=== PATIENT | female | born 1975 | race Hispanic/Latino ===

== ENCOUNTER → 2017-04-17 | Outpatient (CLI) | payer BC ==
[~2017-04-17] MED LIST: ADVAIR 250-501 EACH INH; LEVOTHYROXINE50 MCG PO; LISINOPRIL-HCT1 EAC2 PO; MELOXICAM7.5 MG PO; SINGULAIR10 MG PO; VENTOLIN HFA18 GM IN
--- NOTE | 2017-04-17 17:11 | Diagnostic Imaging Report ---
PROCEDURE:US LIVER COMPARISON:None. INDICATIONS:Elevated LFTs TECHNIQUE: Zuniga-scale and color doppler transverse and longitudinal images of the right upper quadrant of the abdomen were obtained. FINDINGS: Liver: 15.6 cm in right mid-clavicular line. Increased echogenicity. No masses. Main portal vein: 1.2 cm, hepatopetal flow Gallbladder: No stones, sludge, wall thickening, or pericholecystic fluid. Common Bile Duct: 0.3 cm Sonographic Nichole's sign: Negative Right kidney: 11.3 cm. Normal echogenicity. No solid masses or hydronephrosis. Pancreas: The visualized portions of the neck and proximal body are unremarkable. Inferior vena cava: Patent Aorta: Within normal limits Ascites: None in the right upper quadrant of the abdomen. CONCLUSION: 1. Mild hepatomegaly with diffuse fatty infiltration. No focal lesions. Buck Davidson M.D. Dictated by: Buck Davidson M.D. on 04/17/2017 at 17:20 Electronically approved by: Buck Davidson M.D. on 04/17/2017 at 17:20
--- NOTE | 2017-04-17 18:10 | Diagnostic Imaging Report ---
PROCEDURE:X-RAY LUMBAR SPINE, TWO VIEWS COMPARISON:None. INDICATIONS:LOWER BACK PAIN FINDINGS: There are 5 lumbar-type vertebral bodies. The vertebral bodies are well-aligned without evidence of spondylolisthesis. There are no acute, displaced fractures, lytic or blastic lesions. Minimal intervertebral disc space narrowing at L5-S1. The vertebral body heights are well-maintained. The sacroiliac joints are unremarkable. CONCLUSION: Normal lumbar no acute abnormalities. Minimal degenerative disc changes L5-S1. Buck Davidson M.D. Dictated by: Buck Davidson M.D. on 04/17/2017 at 18:19 Electronically approved by: Buck Davidson M.D. on 04/17/2017 at 18:19
== END ==
LOC: US 14:56
PROVIDERS: ATTEND Family Medicine
DX: R94.5 Abnormal results of liver function studies (principal); M54.5 Low back pain
CPT/HCPCS: 36415; 72100; 76705; 81025

== ENCOUNTER 2017-04-22 11:44 | Emergency (ER) | payer BC | END 2017-04-23 12:33 | disposition left against medical advice (07) | LOC: ER 11:44 | DX: Z04.3 Encounter for examination and observation following other accident (principal) ==

== ENCOUNTER → 2017-06-03 | Outpatient (RCR) | payer BC | LOC: PT 05-19 10:49 | PROVIDERS: ATTEND Family Medicine | DX: M50.20 Other cervical disc displacement, unspecified cervical region (principal); M54.5 Low back pain; M62.81 Muscle weakness (generalized) ==

== ENCOUNTER 2017-07-01 15:44 | Outpatient (RCR) | payer BC | END 2017-07-04 | LOC: PT 15:44 | PROVIDERS: ATTEND Family Medicine | DX: M54.5 Low back pain (principal); M50.20 Other cervical disc displacement, unspecified cervical region ==

== ENCOUNTER 2017-07-08 15:43 | Outpatient (RCR) | payer BC | END 2017-08-03 | LOC: PT 15:43 | PROVIDERS: ATTEND Family Medicine | DX: M54.5 Low back pain (principal); M50.20 Other cervical disc displacement, unspecified cervical region; M62.81 Muscle weakness (generalized); M53.86 Other specified dorsopathies, lumbar region ==

== ENCOUNTER → 2018-05-18 | Outpatient (CLI) | payer BC ==
--- NOTE | 2018-05-18 16:58 | Diagnostic Imaging Report ---
EXAMINATION: Thyroid ultrasound. CLINICAL HISTORY: Abnormal thyroid blood tests COMPARISON: None. . DISCUSSION: Transverse and longitudinal images of the thyroid were obtained utilizing grayscale and color Doppler modalities. The right thyroid lobe measures 4.6 x 2.3 x 2 cm and shows normal echogenicity. 2.5 x 1.8 x 1.9 cm solid (2.), Hypoechoic (2.), Wider than tall (0 point) Smoothly marginated (0 point), macrocalcifications (1.) TR 4 5 mm cyst in the upper pole. The left thyroid lobe measures 4.2 x 1.3 x 1.1 cm and shows normal echogenicity. 0.7 x 0.5 x 0.6 cm nodule in the lower pole, solid (2.), Hypoechoic (2.), Wider than tall (0 point), ill-defined margins (0 point), no calcifications (0 point) TR 4 Additional cysts measure 0.6 and 0.5 cm. The thyroid isthmus measures 0.5 cm and shows normal echogenicity. 2S stomach nodules: 1.3 x 0.7 x 0.8 cm solid (2.), Hypoechoic (2.), Wider than tall (0 point), smoothly marginated (0 point), no calcifications (0 point) TR 4 0.8 x 0.6 x 0.8 cm solid (2.), Hypoechoic (2.), Wider than tall (0 point), smoothly marginated (0 point), though calcifications (0 point), TR 4 There is no adenopathy. IMPRESSION: Thyroid nodules as above. Ultrasound-guided fine-needle aspiration of the 2.5 cm TI-RADS 4 nodule in the right lobe is suggested. Follow-up thyroid ultrasound in one year is suggested to assess for stability of the 1.3 cm TI-RADS 4 nodule in the isthmus. The staff physician below has personally reviewed this exam on the date of dictation. Signed by: Dr. Farzad Foster M.D. on 05/18/2018 4:53 PM
== END ==
LOC: US 16:01
PROVIDERS: ATTEND Family Medicine
DX: R94.6 Abnormal results of thyroid function studies (principal); R79.89 Other specified abnormal findings of blood chemistry
CPT/HCPCS: 76536

== ENCOUNTER → 2018-05-20 | Outpatient (CLI) | payer BC | LOC: MAMMO 15:48 | PROVIDERS: ATTEND Family Medicine | DX: Z12.31 Encounter for screening mammogram for malignant neoplasm of breast (principal) | CPT/HCPCS: 77067 ==

== ENCOUNTER → 2018-06-02 | Outpatient (CLI) | payer BC ==
--- NOTE | 2018-06-02 15:23 | Diagnostic Imaging Report ---
Ultrasound-guided right thyroid nodule fine needle aspiration Pre-Procedure Diagnosis: Right sided thyroid nodule Post-procedure Diagnosis: Right sided thyroid nodule Bit Sharpener: Jose Francisco Lane MD Sedation: 1% lidocaine local anesthesia. Estimate blood loss: None. Complications: None Implants/Grafts: None Specimen: 25-gauge fine needle aspiration x 5. Procedure/Findings: Informed consent was obtained and the patient positioned supine in the ultrasound suite. A timeout was performed, followed by preliminary ultrasound of the right neck demonstrating a right sided thyroid nodule, corresponding to the suspicious nodule noted on ultrasound from 05/18/18. A path to the lesion was identified. The neck was prepped and draped in standard sterile fashion. Local anesthesia with 1% subcutaneous lidocaine was administered. Using real-time ultrasound guidance, a 25 gauge needle was advanced into the nodule. A total of five 25-gauge fine needle aspirates were obtained with ultrasound guidance and were submitted to the Pathologist who was present on site for review who confirmed satisfactory specimen. Post procedural ultrasound demonstrated no immediate complication. At the end of the procedure a sterile dressing was applied. Impression: Ultrasound guided fine needle aspiration of right sided thyroid nodule as above. Signed by: Dr. Jose Francisco Lane MD on 06/02/2018 3:20 PM
== END ==
LOC: US 08:26
PROVIDERS: ATTEND Family Medicine
DX: E04.1 Nontoxic single thyroid nodule (principal)
CPT/HCPCS: 10005; 88172; 88173

== ENCOUNTER → 2018-07-30 | Outpatient (CLI) | payer BC ==
[2018-07-30 14:08] LABS: FREE T4 (FREE THYROXINE) 0.96 ng/dL (0.9-1.8); THYROID STIMULATING HORMONE 0.4 uIU/mL (0.350-4.940)
== END ==
LOC: LAB 13:04
PROVIDERS: ATTEND Family Medicine
DX: E04.1 Nontoxic single thyroid nodule (principal)
CPT/HCPCS: 36415; 84439; 84443

== ENCOUNTER 2018-09-06 11:36 | Emergency (ER) | payer BC ==
[~2018-09-06] VITALS: Ht 162.6 cm; Wt 70.1 kg
--- OUTSIDE RECORDS SUMMARY | 2018-09-06 11:41 | XMS REPORT | Continuity of Care Document ---
Author Author [facility] Address Unknown Phone Unavailable Problems Problem Status Onset Date Classification Date Reported Comments Source Acute upper respiratory infection 01/29/2017 Diagnosis 01/29/2017 [facility] Acute pharyngitis 01/29/2017 Diagnosis 01/29/2017 [facility] On examination - hoarseness 01/29/2017 Diagnosis 01/29/2017 [facility] Medications Medication Details Route Status Patient Instructions Ordering Provider Order Date Source Levothyroxine Sodium 50 Mcg Tablet, 50 Mcg Oral Daily Active 04/12/2015 [facility] Montelukast Sodium (Singulair) 10 Mg Tablet, 10 Mg Oral Daily Active 04/10/2015 [facility] Fluticasone propionate 0.25 MG/ACTUAT / salmeterol 0.05 MG/ACTUAT Dry Powder Inhaler Advair Diskus 250 mcg-50 mcg/dose powder for inhalation Active [facility] Amoxicillin 875 MG Oral Tablet amoxicillin 875 mg tablet Take 1 tablet every 12 hours by oral route as directed for 10 days. Active [facility] Blisovi Fe 1/20 (28) 1 mg-20 mcg (21)/75 mg (7) tablet Blisovi Fe 1/20 (28) 1 mg-20 mcg (21)/75 mg (7) tablet TAKE ONE (1) TABLET(S) BY MOUTH ONCE A DAY. Active [facility] Brompheniramine Maleate 0.4 MG/ML / Dextromethorphan Hydrobromide 2 MG/ML / Pseudoephedrine Hydrochloride 6 MG/ML Oral Solution [Bromfed DM] Bromfed DM 2 mg-30 mg-10 mg/5 mL syrup Take 10 mL every 4-6 hours by oral route as needed for 6 days. Active [facility] Hydrochlorothiazide 12.5 MG / Lisinopril 10 MG Oral Tablet lisinopril 10 mg-hydrochlorothiazide 12.5 mg tablet TAKE ONE (1) TABLET(S) BY MOUTH DAILY. Active [facility] montelukast 10 MG Oral Tablet montelukast 10 mg tablet Active [facility] 200 ACTUAT Albuterol 0.09 MG/ACTUAT Metered Dose Inhaler [Ventolin] Ventolin HFA 90 mcg/actuation aerosol inhaler Active [facility] Albuterol Sulfate (Ventolin Hfa) 18 Gm Hfa.aer.ad As Needed Active [facility] Fluticasone/Salmeterol (Advair 250-50 Diskus) 1 Each Disk.w.dev As Needed Active [facility] Lisinopril/Hydrochlorothiazide (Lisinopril-Hctz 10-12.5 Mg Tab) 1 Each Tablet Daily Active [facility] Meloxicam 7.5 Mg Tablet Daily Active [facility] Allergies, Adverse Reactions, Alerts Substance Category Reaction Severity Reaction type Status Date Reported Comments Source Phenytoin RASH Mild Allergy to Substance Active 04/12/2015 [facility] Dilantin Rash Allergy to substance 01/29/2017 [facility] Immunizations Immunization Date Given Site Status Last Updated Comments Source influenza, unspecified formulation 01/22/2017 completed [facility] Results Order Name Results Value Reference Range Date Interpretation Comments Source Urine human chorionic gonadotropin (hCG) detection Urine human chorionic gonadotropin (hCG) detection NEGATIVE NEGATIVE 04/17/2017 [facility] RESULT negative 01/29/2017 [facility] SWAB LOCATION Left and Right tonsillar pillars 01/29/2017 [facility] Influenza A negative 01/29/2017 [facility] Influenza B negative 01/29/2017 [facility] Vital Signs Vital Sign Value Date Comments Source Diastolic (mm Hg) 74 01/29/2017 [facility] Height 64 01/29/2017 [facility] Systolic (mm Hg) 110 01/29/2017 [facility] Weight 164 01/29/2017 [facility] Encounters Location Location Details Encounter Type Encounter Number Reason For Visit Attending Provider ADM Date DC Date Status Source [place] - [facility] - [id number] Dorado, ALEX-C: [address] [place] [address], Ph. [id number] Luzma Dorado 01/29/2017 [facility] Registered Clinic [id number] SHARMAINE AYALA MD 04/17/2017 [facility] Departed Emergency Room [id number] MAREN PRAKASH MD 04/22/2017 04/23/2017 [facility] Discharged Recurring [id number] SHARMAINE AYALA MD 05/19/2017 06/03/2017 [facility] Discharged Recurring [id number] SHARMAINE AYALA MD 06/09/2017 07/04/2017 [facility] Discharged Recurring [id number] SHARMAINE AYALA MD 07/08/2017 08/03/2017 [facility] Procedures Procedure Code Date Perfomer Comments Source US liver [id number] 04/17/[address] [facility]
--- OUTSIDE RECORDS SUMMARY | 2018-09-06 11:41 | XMS REPORT | Encounter Summary ---
Author Organization Unknown Address [address] [place] [address] Phone [phone] Reason for Visit Medical Complaint Instructions 1. Acute upper respiratory infection upper respiratory infection (cold): care instructions rapid flu (A+B) Bromfed DM 2 mg-30 mg-10 mg/5 mL syrup 2. Acute pharyngitis sore throat: care instructions amoxicillin 875 mg tablet culture, respiratory rapid strep group A, throat 3. On examination - hoarseness Discussion Note Pt is in NAD; Verbalizes understanding of all instructions with no questions at this time. Plan of Care Patient Instructions Take fluticasone (flonase) as needed for nasal and ear congestion and post nasal drainage. [place] one spray in each nostril twice a day. Take a warm, steamy shower, blow your nose thereafter, and spray in each nostril. Tilt your head up for about 10 seconds and breath through your mouth. Do not sniff or snort the medication in or else the medication will go to your throat and not be absorbed appropriately. Take Bromfed DM as directed for cough. Alternate with Ibuprofen and acetaminophen every 4hrs as needed for pain/fever/headache. Take antibiotic as directed. Proper hydration and rest. Return to work/school if free of fever for 24-hrs. Do not share any utensils/cups, no kissing, recommend hand washing after coughing/sneezing/blowing nose and cover face when you do so. Take medications as prescribed. Return to clinic or follow up with your PCP within 2- 3 days if symptoms worsen as discussed. We will call you with your lab results. Reminders Provider Appointments None recorded. Lab Rapid Flu (A+B) 01/29/2017 [facility] Culture, Respiratory 01/29/2017 [facility] Rapid Strep Group a, Throat 01/29/2017 [facility] Referral None recorded. Procedures None recorded. Surgeries None recorded. Imaging None recorded. Medications Name Start Date Advair Diskus 250 mcg-50 mcg/dose powder for inhalation amoxicillin 875 mg tablet Take 1 tablet every 12 hours by oral route as directed for 10 days. Blisovi Fe 04/25 (28) 1 mg-20 mcg (21)/75 mg (7) tablet TAKE ONE (1) TABLET(S) BY MOUTH ONCE A DAY. Bromfed DM 2 mg-30 mg-10 mg/5 mL syrup Take 10 mL every 4-6 hours by oral route as needed for 6 days. lisinopril 10 mg-hydrochlorothiazide 12.5 mg tablet TAKE ONE (1) TABLET(S) BY MOUTH DAILY. montelukast 10 mg tablet Ventolin HFA 90 mcg/actuation aerosol inhaler Medications Administered None recorded. Vitals Height Weight BMI Blood Pressure 5 ft 4 in 164 lbs 28.2 kg/m2 110/74 mm[Hg] Lab Results Date Name Specimen Result Interpretation Description Value Range Status Address Rapid Strep Group a, Throat Result negative [facility]: [address] [place] [address] Swab Location Left and Right tonsillar pillars [facility]: [address] [place] [address] Rapid Flu (A+B) Influenza a negative [facility]: [address] [place] [address] Influenza B negative [facility]: [address] [place] [address] Allergies Code Code System Name Reaction Severity Status Onset RxNorm Dilantin Rash Active NKDA Problems None recorded. Procedures None recorded. Vaccine List Vaccine Type influenza, unspecified formulation 01/22/2017 Social History Smoking Status Never Smoker Past Encounters 01/29/2017 Acute Upper Respiratory Infection; Acute Pharyngitis; On Examination - Hoarseness Luzma Dorado, OPERATIONAL RISK ANALYST-C: [address] [place] [address], Ph. History of Present Illness Throat-Oral Complaint Reported By: Patient HPI: Location: throat. Quality: sore throat. Severity: moderate, pain level 6/10. Duration: 2 days. Onset/Timing: sudden. Context: no sick contacts, no foreign travel, non-smoker, allergies, asthma; Pt is adamant about ABX because she is scheduled for surgery next week although she was educated on viral vs bacterial vs allergic etiology. Modifying factors: OTC medication. Associated Symptoms: no fever, no headache, no body aches, no sputum production, no shortness of breath, no wheezing, no change in number of pillows needed to sleep at night, no sweats, no significant weight gain, no significant weight loss, no morning cough, no vomiting, no diarrhea, no rash, no nausea, sore throat; nasal congestion,B/L ear pressure and fullness, post nasal drip, hoarseness, and chills Busdopw-Xwufa-Cuf Reported By: Patient HPI: Quality: symptoms worse during the day. Duration: 2 days. Context: no ill contacts, no tick/insect bites, no recent travel, no new medications. Associated Symptoms: no fever/chills, no headache, no muscle aches, no rash, no lethargy, nasal passage blockage (stuffiness); B/L ear pressure and fullness, post nasal drip, sore throat, hoarseness, and chills. Modifying Factors nothing gives relief Review of Systems:ROS as noted in the HPI Review of Systems Basic Reported By: Patient Physical Exam Adult Basic, Adult Female Complete Reported By: Patient Constitutional: General Appearance: healthy-appearing, well-nourished, well-developed. Level of Distress: NAD. Ambulation: ambulating normally Psychiatric: Mental Status: active and alert. Orientation: to time, to place, to person Mjf-Clmn-Xtzed-Throat: Ears: no lesions on external ear, no outer ear tenderness, EACs clear, TMs clear. Hearing: no hearing loss. Nose: no lesions on external nose, nares patent, no septal deviation, nasal passages clear, no sinus tenderness, nasal discharge--rhinorrhea, post nasal drip; B/L NTs edematous and pale. Lips, Teeth, and Gums: no mouth or lip ulcers, no bleeding gums, normal dentition. Oropharynx: moist mucous membranes, no exudates, tonsils not enlarged, erythema Neck: Lymph Nodes: no cervical LAD Lungs: Respiratory effort: no dyspnea, no tachypnea, no use of accessory muscles, no intercostal retractions. Auscultation: breath sounds normal Cardiovascular: Heart Auscultation: RRR, no murmurs Neurologic: Gait and Station: normal gait, normal station
--- OUTSIDE RECORDS SUMMARY | 2018-09-06 11:41 | XMS REPORT ---
Author Author [facility] Address Unknown Phone Unavailable Care Team Providers Care Size Maker Name Role Phone Charles AYALA (EMMANUEL) SHARMAINE Unavailable Unavailable Problems This patient has no known problems. Allergies, Adverse Reactions, Alerts This patient has no known allergies or adverse reactions. Medications This patient has no known medications. Results Test Description Test Time Test Comments Text Results Atomic Results Result Comments FNA US GUIDED 1ST LESION 2018-06-02 15:14:00 [place] [address] Patient Name: KIRK JARAMILLO MR #: [id number] : 1975 Age/Sex: 43/F Req #: [id number] Adm Physician: Ordered by: SHARMAINE AYAAL MD Report #: [id number] Location: US Room/Bed: Procedure: [id number] IR/FNA US GUIDED 1ST LESION Exam Date: Exam Time: REPORT STATUS: Signed Ultrasound-guided right thyroid nodule fine needle aspiration Pre-Procedure Diagnosis: Right sided thyroid nodule Post-procedure Diagnosis: Right sided thyroid nodule Direct Mail Manager: Meenakshi Argueta MD Sedation: 1% lidocaine local anesthesia. Estimate blood loss: None. Complications: None Implants/Grafts: None Specimen: 25-gauge fine needle aspiration x 5. Procedure/Findings: Informed consent was obtained and the patient positioned supine in the ultrasound suite. A timeout was performed, followed by preliminary ultrasound of the right neck demonstrating a right sided thyroid nodule, corresponding to the suspicious nodule noted on ultrasound from 05/18/18. A path to the lesion was identified. The neck was prepped and draped in standard sterile fashion. Local anesthesia with 1% subcutaneous lidocaine was administered. Using real-time ultrasound guidance, a 25 gauge needle was advanced into the nodule. A total of five 25-gauge fine needle aspirates were obtained with ultrasound guidance and were submitted to the Pa thologist who was present on site for review who confirmed satisfactory specimen. Post procedural ultrasound demonstrated no immediate complication. At the end of the procedure a sterile dressing was applied. Impression: Ultrasound guided fine needle aspiration of right sided thyroid nodule as above. Signed by: Dr. Meenakshi Argueta MD on 06/02/2018 3:20 PM Dictated By: MEENAKSHI ARGUETA MD 1520 Transcribed By: SHERLY on 06/02/18 1520 COPY TO: SHARMAINE AYALA MD (NS) MAMMOGRAPHY DIGITAL SCR BILAT 2018-05-20 16:25:00 [place] [address] Patient Name: KIRK JARAMILLO MR #: [id number] : 1975 Age/Sex: 43/F Req #: [id number] Adm Physician: Ordered by: SHARMAINE AYALA MD Report #: [id number] [facility]: Procedure: [id number] MG/MAMMOGRAPHY DIGITAL SCR BILAT Exam Date: 05/20/18 Exam Time: 1550 REPORT STATUS: Signed #[id number] - [id number] #BILATERAL DIGITAL SCREENING MAMMOGRAM WITH CAD: 05/20/2018 CLINICAL: Routine screening. Comparison is made to exam dated: 08/02/2015 mammogram - [facility]. Current study contains 6 films. The tissue of both breasts is heterogeneously dense. This may lower the sensitivity of mammography. Current study was also evaluated with a Computer Aided Detection (CAD) system. There are benign calcifications in both breasts. There also is a biopsy clip in the right breast. The previously described focal asymmetry in the deep right breast best seen on the MLO view is stable. No significant masses, calcifications, or other findings are seen in either breast. There has been no significant interval change. IMPRESSION: BENIGN There is no mammographic evidence of malignancy. A 1 year screening mammogram is recommended. The patient will be notified by letter of the results. Philomena Dominguez Jr., D.O. cw/:06/04/2018 11:25:13 [place]ider: Sharmaine GUILLEN)(M), [facility] letter sent: Compared to Prior B9 Mammogram BI-RADS: 2 Benign Dictated By: PHILOMENA DOMINGUEZ DO 1125 Transcribed By: SETH on 06/04/18 1125 COPY TO: SHARMAINE AYALA MD (NS) THYROID 2018-05-18 16:47:00 [place] [address] Patient Name: KIRK JARAMILLO MR #: [id number] : 1975 Age/Sex: 43/F Req #: [id number] Adm Physician: Ordered by: SHARMAINE AYALA MD Report #: [id number] Location: US Room/Bed: Procedure: [id number] US/US THYROID Exam Date: 05/18/18 Exam Time: 1618 REPORT STATUS: Signed EXAMINATION: Thyroid ultrasound. CLINICAL HISTORY: Abnormal thyroid blood tests COMPARISON: None. . DISCUSSION: Transverse and longitudinal images of the thyroid were obtained utilizing grayscale and color Doppler modalities. The right thyroid lobe measures 4.6 x 2.3 x 2 cm and shows normal echogenicity. 2.5 x 1.8 x 1.9 cm solid (2.), Hypoechoic (2.), Wider than tall (0 point) Smoothly marginated (0 point), macrocalcifications (1.) TR 4 5 mm cyst in the upper pole. The left thyroid lobe measures 4.2 x 1.3 x 1.1 cm and shows normal echogenicity. 0.7 x 0.5 x 0.6 cm nodule in the lower pole, solid (2.), Hypoechoic (2.), Wider than tall (0 point), ill-defined margins (0 point), no calcifications (0 point) TR 4 Additional cysts measure 0.6 and 0.5 cm. The thyroid isthmus measures 0.5 cm and shows normal echogenicity. 2S stomach nodules: 1.3 x 0.7 x 0.8 cm solid (2.), Hypoechoic (2.), Wider than tall (0 point), smoothly marginated (0 point), no calcifications (0 point) TR 4 0.8 x 0.6 x 0.8 cm solid (2.), Hypoechoic (2.), Wider than tall (0 point), smoothly marginated (0 point), though calcifications (0 point), TR 4 There is no adenopathy. IMPRESSION: Thyroid nodules as above. Ultrasound-guided fine-needle aspiration of the 2.5 cm TI-RADS 4 nodule in the right lobe is suggested. Follow-up thyroid ultrasound in one year is suggested to assess for stability of the 1.3 cm TI-RADS 4 nodule in the isthmus. The staff physician below has personally reviewed this exam on the date of dictation. Signed by: Dr. Kathia Ponce M.D. on 05/18/2018 4:53 PM Dictated By: KATHIA PONCE MD 1653 Transcribed By: SHERLY on 05/18/18 1653 COPY TO: SHARMAINE AYALA MD (NS) SP LUMBAR AP LATERAL 2-3VWS [place] [address] [place] [address] Patient Name: KIRK JARAMILLO MR #: [id number] : 1975 Age/Sex: 42/F Req #: [id number] Adm Physician: Ordered by: SHARMAINE AYALA MD Report #: [id number] Location: Room/Bed: Procedure: [id number] DX/SP LUMBAR AP LATERAL 2-3VWS Exam Date: 04/17/17 Exam Time: 1610 REPORT STATUS: Signed PROCEDURE: X-RAY LUMBAR SPINE, TWO VIEWS COMPARISON: None. INDICATIONS: LOWER BACK PAIN FINDINGS: There are 5 lumbar-type vertebral bodies. The vertebral bodies are well-aligned without evidence of spondylolisthesis. There are no acute, displaced fractures, lytic or blastic lesions. Minimal intervertebral disc space narrowing at L5-S1. The vertebral body heights are well-maintained. The sacroiliac joints are unremarkable. CONCLUSION: Normal lumbar no acute abnormalities. Minimal degenerative disc changes L5-S1. Neftali Davidson M.D. Dictated by: Neftali Davidson M.D. on 04/17/2017 at 18:19 Electronically approved by: Neftali Davidson M.D. on 04/17/2017 at 18:19 Dictated By: NEFTALI DAVIDSON MD 18 Transcribed By: SHELL on 04/17/171818 COPY TO: SHARMAINE AYALA MD (NS) [facility] [address] [place] [address] Patient Name: KIRK JARAMILLO MR #: [id number] : 1975 Age/Sex: 42/F Req #: [id number] Adm Physician: Ordered by: SHARMAINE AYALA MD Report #: [id number] Location: US Room/Bed: Procedure: [id number] US/US LIVER Exam Date: 04/17/17 Exam Time: 1509 REPORT STATUS: Signed PROCEDURE: US LIVER COMPARISON: None. INDICATIONS: Elevated LFTs TECHNIQUE: Zuniga-scale and color doppler transverse and longitudinal images of the right upper quadrant of the abdomen were obtained. FINDINGS: Liver: 15.6 cm in right mid-clavicular line. Increased echogenicity. No masses. Main portal vein: 1.2 cm, hepatopetal flow Gallbladder: No stones, sludge, wall thickening, or pericholecystic fluid. Common Bile Duct: 0.3 cm Sonographic Nichole's sign: Negative Right kidney: 11.3 cm. Normal echogenicity. No solid masses or hydronephrosis. Pancreas: The visualized portions of the neck and proximal body are unremarkable. Inferior vena cava: Patent Aorta: Within normal limits Ascites: None in the right upper quadrant of the abdomen. CONCLUSION: 1. Mild hepatomegaly with diffuse fatty infiltration. No focal lesions. Neftali Davidson M.D. Dictated by: Neftali Davidson M.D. on 04/17/2017 at 17:20 Electronically approved by: Neftali Davidson M.D. on 04/17/2017 at 17:20 Dictated By: NEFTALI DAVIDSON MD 1720 Transcribed By: SHELL melo 04/17/171719 COPY TO: SHARMAINE AYALA MD (NS)
[2018-09-06] MEDS ORDERED: AMOXICILLIN500 MG PO (12:19)
[2018-09-06 12:31] VITALS: BP 155/83
== END 2018-09-06 12:31 | disposition home or self-care (01) ==
LOC: FSED 11:36
DX: R05 Cough (principal); J02.0 Streptococcal pharyngitis; B34.9 Viral infection, unspecified; J45.30 Mild persistent asthma, uncomplicated; I10 Essential (primary) hypertension
CPT/HCPCS: 83518; 87400; 99283

== ENCOUNTER → 2018-09-08 | Outpatient (CLI) | payer BC ==
[~2018-09-08] MED LIST changes: +AMOXICILLIN500 MG PO
[2018-09-08 13:47] LABS: FREE THYROXINE INDEX 2.2302 (1.4-3.8); THYROID STIMULATING HORMONE 0.502 uIU/mL (0.350-4.940)
== END ==
LOC: LAB 12:45
PROVIDERS: ATTEND Internal Medicine Endocrinology, Diabetes & Metabolism
DX: R94.6 Abnormal results of thyroid function studies (principal); E04.9 Nontoxic goiter, unspecified; E11.65 Type 2 diabetes mellitus with hyperglycemia
CPT/HCPCS: 36415; 84436; 84443; 84445; 84479; 86376; 86800

== ENCOUNTER → 2018-11-03 | Outpatient (CLI) | payer BC ==
--- NOTE | 2018-11-03 17:01 | Diagnostic Imaging Report ---
EXAMINATION: CHEST 2 VIEWS INDICATION: Asthma COMPARISON: None FINDINGS: LINES/TUBES:None LUNGS:The lungs are well-inflated. No focal consolidation or pulmonary edema. PLEURA:No pleural effusion or pneumothorax. MEDIASTINUM:The cardiomediastinal silhouette appears normal in size and shape. BONES/SOFT TISSUES:No acute osseous injury. ABDOMEN:No free air under the diaphragm. IMPRESSION: No focal pneumonia or pulmonary edema. Signed by: Michelle Wiggins MD on 11/03/2018 4:58 PM
== END ==
LOC: RAD 16:16
PROVIDERS: ATTEND Nurse Practitioner Family
DX: J45.901 Unspecified asthma with (acute) exacerbation (principal)
CPT/HCPCS: 71046

== ENCOUNTER 2018-11-18 18:12 | Emergency (ER) | payer BC ==
[~2018-11-18] VITALS: Ht 162.6 cm; Wt 69.9 kg
--- OUTSIDE RECORDS SUMMARY | 2018-11-18 18:17 | XMS REPORT | Continuity of Care Document ---
Author Author [employer] Address Unknown Phone Unavailable Care Team Providers Care Idea Man Name Role Phone [employer] website Information [facility] Unavailable Unavailable Problems Problem Status Onset Date Classification Date Reported Comments Source Acute upper respiratory infection 01/29/2017 Diagnosis 01/29/2017 [facility] Acute pharyngitis 01/29/2017 Diagnosis 01/29/2017 [facility] On examination - hoarseness 01/29/2017 Diagnosis 01/29/2017 [facility] Medications Medication Details Route Status Patient Instructions Ordering Provider Order Date Source Amoxicillin 500 Mg Capsule Twice A Day for For Infection Active [facility] 09/06/2018 [facility] Levothyroxine Sodium 50 Mcg Tablet, 50 Mcg Oral Daily Active 04/12/2015 [facility] Levothyroxine Sodium 50 Mcg Tablet, 50 Mcg Oral Daily Active 04/12/2015 [facility] Montelukast Sodium (Singulair) 10 Mg Tablet, 10 Mg Oral Daily Active 04/10/2015 [facility] Montelukast Sodium (Singulair) 10 Mg Tablet, 10 Mg Oral Daily Active 04/10/2015 [facility] Fluticasone propionate 0.25 MG/ACTUAT / salmeterol 0.05 MG/ACTUAT Dry Powder Inhaler Advair Diskus 250 mcg-50 mcg/dose powder for inhalation Active [facility] Amoxicillin 875 MG Oral Tablet amoxicillin 875 mg tablet Take 1 tablet every 12 hours by oral route as directed for 10 days. Active [facility] Blisovi Fe /20 (28) 1 mg-20 mcg (21)/75 mg (7) tablet Blisovi Fe /20 (28) 1 mg-20 mcg (21)/75 mg (7) [...] Hfa) 18 Gm Hfa.aer.ad As Needed Active [facility] Fluticasone/Salmeterol (Advair 250-50 Diskus) 1 Each Disk.w.dev As Needed Active [facility] Lisinopril/Hydrochlorothiazide (Lisinopril-Hctz 10-12.5 Mg Tab) 1 Each Tablet Daily Active [facility] Meloxicam 7.5 Mg Tablet Daily Active [facility] Albuterol Sulfate (Ventolin Hfa) 18 Gm Hfa.aer.ad As Needed Active [facility] Lisinopril/Hydrochlorothiazide (Lisinopril-Hctz 10-12.5 Mg Tab) 1 Each Tablet Daily Active [facility] Meloxicam 7.5 Mg Tablet Daily Active [facility] Allergies, Adverse Reactions, Alerts Substance Category Reaction Severity Reaction type Status Date Reported Comments Source Phenytoin RASH Mild Allergy to Substance Active 04/12/2015 [facility] Dilantin Rash Allergy to substance 01/29/2017 [facility] Immunizations Immunization Date Given Site Status Last Updated Comments Source influenza, unspecified formulation 01/22/2017 completed [facility] Results Order Name Results Value Reference Range Date Interpretation Comments Source Serum or plasma thyroxine (T4) free measurement (mass/volume) 0.96 0.9 - 1.8 07/30/2018 [facility] Serum or plasma thyrotropin measurement by detection limit <=0.005 miu/l (units/volume) 0.400 0.350 - 4.940 07/30/2018 [facility] Urine human chorionic gonadotropin (hCG) detection Urine human chorionic gonadotropin (hCG) detection NEGATIVE NEGATIVE 04/17/2017 [facility] RESULT negative 01/29/2017 [facility] SWAB LOCATION Left and Right tonsillar pillars 01/29/2017 [facility] Influenza A negative 01/29/2017 [facility] Influenza B negative 01/29/2017 [facility] Pathology Reports No Data Provided for This Section Diagnostic Reports No Data Provided for This Section Consultation Notes No Data Provided for This Section Discharge Summaries No Data Provided for This Section History and Physicals No Data Provided for This Section Vital Signs Vital Sign Value Date Comments Source Diastolic (mm Hg) 74 01/29/2017 [facility] Height 64 01/29/2017 [facility] Systolic (mm Hg) 110 01/29/2017 [facility] Weight 164 01/29/2017 [facility] Encounters Location Location Details Encounter Type Encounter Number Reason For Visit Attending Provider ADM Date DC Date Status Source [place] [facility] - [id number], [facility] [address] [place] [address], Ph. [id number] Luzma Dorado 01/29/2017 [facility] Registered Clinic [id number] SHARMAINE AYALA MD 04/17/2017 [facility] Departed Emergency Room [id number] MAREN PRAKASH MD 04/22/2017 04/23/2017 [facility] Discharged Recurring [id number] SHARMAINE AYALA MD 05/19/2017 06/03/2017 [facility] Discharged Recurring [id number] SHARMAINE AYALA MD 06/09/2017 07/04/2017 [facility] Discharged Recurring [id number] SHARMAINE AYALA MD 07/08/2017 08/03/2017 [facility] Registered Clinic [id number] SHARMAINE AYALA MD 05/18/2018 [facility] Registered Clinic [id number] SHARMAINE AYALA MD 05/20/2018 [facility] Registered Clinic [id number] SHARMAINE AYALA MD 06/02/2018 [facility] Registered Clinic [id number] SHARMAINE AYALA MD 07/30/2018 [facility] Departed Emergency Room [id number] MARGY SCHOFIELD MD 09/06/2018 09/06/2018 [facility] Procedures Procedure Code Date Perfomer Comments Source US thyroid [id number] 05/18/2018 [facility] liver [id number] 04/17/2017 [facility] Assessment and Plan No Data Provided for This Section Plan of Care Plan of Care Date Source Discharge Date 09/06/18 12:31pm Disposition HOME, SELF-CARE Condition at Discharge Stable Instructions/Education Provided Viral Syndrome - Adult Forms Provided Work/School Excuse Prescriptions See Medication Section Additional Instructions/Education In addition to prescription medications, recommend that you take the following: - Mucinex DM 600mg - 2 tabs twice daily, to help decrease mucous production - Ibuprofen 200 mg - 3 tabs together every 6 hours, with food, as needed for fever or body aches. - Zyrtec (Cetirizine) 10 mg - 1 tab daily, to help decrease post-nasal drainage. Drink LOTS of water, to help with hydration and to thin mucous. 09/06/2018 [facility] Prescriptions See Medication Section 08/04/2017 [facility] Social History Social History Date Source Social History Problem Response Recorded Date/Time Onset Date Status Hx Psychiatric Problems No 04/12/2015 2:07pm Not Applicable Not Applicable Hx Eating Disorder No 04/12/2015 2:07pm Not Applicable Not Applicable Hx Substance Use Disorder No 04/12/2015 2:07pm Not Applicable Not Applicable Hx Depression No 04/12/2015 2:07pm Not Applicable Not Applicable Hx Alcohol Use No 04/12/2015 2:07pm Not Applicable Not Applicable Hx Substance Use Treatment No 04/12/2015 2:07pm Not Applicable Not Applicable Hx Physical Abuse No 04/12/2015 2:07pm Not Applicable Not Applicable Smoking Status Start Date Stop Date Never Smoker 09/06/2018 [facility] Smoking Status Never Smoker 01/29/2017 [facility] Family History No Data Provided for This Section Advance Directives Order Name Results Value Date Source Advance Directives Advance Directives Directive Response Recorded Date/Time Does the patient have an advance directive? No 04/12/15 2:07pm If yes, is advance directive on file with [facility]? No 04/12/15 2:07pm If not on file with [facility] will patient provide a copy? No 04/12/15 2:07pm Do you have a Directive to Physician? No 09/06/18 12:16pm Do you have a Medical Power of Lisw? No 09/06/18 12:16pm Do you have an out of hospital Do Not Resuscitate Order? No 09/06/18 12:16pm Do you have any special needs we should be aware of? No 09/06/18 12:16pm Do you have a support person here with you today? Yes 09/06/18 12:16pm Did patient receive Notice of Privacy Practices? Yes 09/06/18 12:16pm Did patient receive patient rights and responsibilities? Yes 09/06/18 12:16pm 09/06/2018 [facility] Advance Directives Advance Directives Directive Response Recorded Date/Time Does the patient have an advance directive? No 04/12/15 2:07pm If yes, is advance directive on file with [facility]? No 04/12/15 2:07pm If not on file with [facility] will patient provide a copy? No 04/12/15 2:07pm Do you have a Directive to Physician? No 07/08/17 3:42pm Do you have a Medical Power of Lisw? No 07/08/17 3:42pm Do you have an out of hospital Do Not Resuscitate Order? No 07/08/17 3:42pm Do you have any special needs we should be aware of? No 07/08/17 3:42pm Do you have a support person here with you today? No 07/08/17 3:42pm Did patient receive Notice of Privacy Practices? No 07/08/17 3:42pm Did patient receive patient rights and responsibilities? No 07/08/17 3:42pm 08/04/2017 [facility] Functional Status No Data Provided for This Section
--- NOTE | 2018-11-18 18:58 | NUR ---
assumed care of pt
[2018-11-18 19:01] VITALS: BP 103/69
--- NOTE | 2018-11-18 19:05 | Diagnostic Imaging Report ---
KNEE 2 VIEW LT - HOPD - 2 views HISTORY: Pain COMPARISON: None available. FINDINGS: Bones: No acute displaced fracture. Osseous alignment is within normal limits. Joints: The joint spaces are well-maintained. Soft tissues: The soft tissues appear unremarkable. IMPRESSION: No acute radiographic abnormality. Signed by: Dr. Chepe Garcia MD on 11/18/2018 7:02 PM
== END 2018-11-18 19:10 | disposition home or self-care (01) ==
LOC: FSED 18:12
DX: S80.02XA Contusion of left knee, initial encounter (principal); S80.11XA Contusion of right lower leg, initial encounter; M25.511 Pain in right shoulder; W01.0XXA Fall on same level from slipping, tripping and stumbling without subsequent striking against object, initial encounter; Y92.512 Supermarket, store or market as the place of occurrence of the external cause; I10 Essential (primary) hypertension; E11.9 Type 2 diabetes mellitus without complications; J45.909 Unspecified asthma, uncomplicated; G40.909 Epilepsy, unspecified, not intractable, without status epilepticus
CPT/HCPCS: 99283

== ENCOUNTER → 2018-12-31 | Outpatient (CLI) | payer BC ==
--- NOTE | 2018-12-31 15:18 | Diagnostic Imaging Report ---
Thyroid ultrasound. History: Thyroid nodules. Comparison: 05/18/2018. Discussion: Transverse and longitudinal images of the thyroid were obtained demonstrating heterogeneous echogenicity of the thyroid. The right thyroid lobe measures 4.2 x 1.9 x 1.7 cm. A heterogeneous partially calcified nodule is present in the interpolar region measuring 2.9 x 1.8 x 1.8 cm, previously measuring 2.5 x 1.8 x 1.9 cm. This nodule was previously biopsied. The left lobe measures 3.9 x 1.1 x 1.2 cm. 4 subcentimeter hypoechoic nodules/cysts are present , ranging in size from 0.4 - 0.7 cm in maximal diameter, without significant change. The isthmus measures 5 mm in thickness. 2 oval circumscribed hypoechoic nodules are present, measuring 0.8 x 0.6 x 0.7 cm and 1.0 x 0.6 x 0.7 cm on the left, previously measuring 0.8 and 1.3 cm. IMPRESSION: Multiple thyroid nodules. Slight increase in size of right thyroid nodule which was previously biopsied. Decrease in size of left isthmus nodule, previously described as 1.3 cm TI-RADS 4 nodule, now measuring 1 cm. Continued follow-up in one year may be obtained. Signed by: London Mendoza on 12/31/2018 3:14 PM
--- NOTE | 2019-01-03 09:10 | Diagnostic Imaging Report ---
#[id number] - USBRELIMLT ULTRASOUND OF THE LEFT BREAST : 12/31/2018 Comparison is made to exams dated: 05/20/2018 mammogram and 05/22/2016 mammogram - [facility]. Real-time ultrasound was performed on the left breast. There are no solid or cystic masses identified. IMPRESSION: BENIGN There is no sonographic evidence of malignancy. A 1 year screening mammogram is recommended. PHUONG HEARD M.D. ct/penrad:12/31/2018 16:25:35 [employer] Wheelchair Mechanic: KARTHIK CARDOSO RDMS, [facility] letter sent: Normal Exam Ultrasound BI-RADS: 2 Benign
== END ==
LOC: US 12:24
PROVIDERS: ATTEND Obstetrics & Gynecology Gynecology
DX: N61.0 Mastitis without abscess (principal); N60.12 Diffuse cystic mastopathy of left breast; E04.2 Nontoxic multinodular goiter
CPT/HCPCS: 76536

== ENCOUNTER → 2019-01-04 | Outpatient (CLI) | payer BC ==
[~2019-01-04] MED LIST changes: +LEVALBUTEROL HCL SOLN NEBU 0.63 MG/3 ML NEB ONE
--- NOTE | 2019-01-04 19:50 | Pulmonary Function Test ---
DATE OF STUDY: REFERRING PHYSICIAN: FEV1 was 2.58 L, which is 88.7% of predicted and the FVC is 3.3 L, which is 93% of predicted. The FEV1 to FVC ratio was 78%. There was no significant change with bronchodilators. Diffusion capacity was within normal limits. The flow volume loop was within normal limits and the patient effort was good. CONCLUSION: 1. Spirometry and diffusion capacity are within normal limits. 2. No significant response to bronchodilators. Alejo Harris MD [facility]/MODL /[id number]
== END ==
LOC: RESP 09:22
PROVIDERS: ATTEND Internal Medicine Critical Care Medicine
DX: J45.909 Unspecified asthma, uncomplicated (principal)
CPT/HCPCS: 94060; 94640; 94729

== ENCOUNTER → 2019-06-15 | Outpatient (CLI) | payer BC ==
[~2019-06-15] MED LIST changes: +DEBLITANE0.35 MG PO; +DEXMEDETOMIDINE HCL 2 ML ONE; +LACTATED RINGER'S 1,000 ML ONE; -LEVALBUTEROL HCL SOLN NEBU 0.63 MG/3 ML NEB ONE; +LEVOCETIRIZINE D5 MG PO; +LISINOPRIL2.5 MG PO; +SODIUM CHLORIDE 0.9% 50ML 100 ML ONE; +SPIRIVA RESPIMAT4 G1 INH; +TRULICITY1.5 MG/0.5 SC
--- NOTE | 2019-06-15 12:23 | Diagnostic Imaging Report ---
Examination: MRI SPINE LUMBAR WO CONTRAST History: Low back pain with left leg pain. Comparison studies: None Technique: Sagittal, coronal and axial T2 , sagittal T1 and STIR; axial spin density oblique. Findings: Number of lumbar vertebral bodies: Five. Alignment: Normal lordosis. No scoliosis. Soft tissues: No T2 hyperintense inflammatory changes. Posterior paraspinal soft tissues and muscles: No abnormality. Lower thoracic cord: Normal in signal and morphology. The tip of the conus is at bottom of T12. Cauda equina: No masses. No arachnoiditis. Vertebrae: No fractures, infection or neoplasm. A 2.2 cm T1 and T2 hyperintense and STIR hypointense lesion is identified within the midline and left of midline at L2, consistent with a hemangioma. Additional smaller hemangiomata are identified in the left aspect of L3 and L4. Degenerative changes: L1-L2 through L4-L5: No abnormalities. L5-S1: Central and left central disc protrusion which flattens and posteriorly displaces the descending left S1 nerve root towards the left facet. Mild bilateral neural foraminal narrowing due to mild diffuse disc bulge. No canal stenosis. IMPRESSION: Degenerative changes at L5-S1 with a central and left central disc protrusion that posteriorly displaces and flattens the descending left S1 nerve root. No significant (not moderate or severe) foraminal stenosis. No canal stenosis. Hemangiomata from L2 through L4. Signed by: Dr. Yelitza Baltazar M.D. on 06/15/2019 12:20 PM
== END ==
LOC: OR 07:49
PROVIDERS: ATTEND Family Medicine
DX: M54.16 Radiculopathy, lumbar region (principal)
CPT/HCPCS: 72148; 81025; J7121

== ENCOUNTER 2019-08-18 07:30 | Observation (INO) | payer BC, OTHER ==
--- NOTE | 2019-08-15 14:04 | Diagnostic Imaging Report ---
EXAM: CHEST 2 VIEWS DATE: 08/15/2019 1:00 PM INDICATION: Preoperative evaluation COMPARISON: 11/03/2018 FINDINGS: The trachea is midline. The lungs are symmetrically expanded without evidence for large focal consolidation, pneumothorax, or significant pleural effusion. The cardiomediastinal silhouette and pulmonary vasculature are within normal limits. Partially visualized cervical fusion hardware noted No acute osseous abnormality is identified. The surrounding soft tissues are unremarkable. IMPRESSION: No acute cardiopulmonary process identified. Signed by: Dr. Tarun Combs MD on 08/15/2019 2:01 PM
[2019-08-15 14:55] LABS: BASOPHILS # (AUTO) 0.1 (0.0-0.1); BASOPHILS % 0.7 % (0.0-1.0); EOSINOPHILS # (AUTO) 0.4 (0.0-0.4); EOSINOPHILS % 4.6 % (0.0-6.0); HEMATOCRIT 38.8 % (34.2-44.1); LYMPHOCYTES # (AUTO) 2.4 (1.0-3.2); LYMPHOCYTES % 31.6 % (18.0-39.1); MEAN CORPUSCULAR HEMOGLOBIN 27.6 pg (28-32); MEAN CORPUSCULAR HGB CONC 33.5 g/dL (31-35); MEAN CORPUSCULAR VOLUME 82.4 fL (81-99); MONOCYTES # (AUTO) 0.4 (0.2-0.8); MONOCYTES % 4.6 % (4.4-11.3); NEUTROPHILS # (AUTO) 4.4 (2.1-6.9); NEUTROPHILS % 57.7 % (38.7-80.0); PLATELET COUNT 288 x10e3/uL (140-360); RED BLOOD COUNT 4.71 x10e6/uL (3.6-5.1); RED CELL DISTRIBUTION WIDTH 12.5 % (11.7-14.4)
[2019-08-15 15:02] LABS: INR 0.96; PROTHROMBIN TIME 13.3 seconds (11.9-14.5)
[2019-08-15 15:09] LABS: BLOOD UREA NITROGEN 9 mg/dL (7-26); BUN/CREATININE RATIO 15 (6-25); CALCIUM 9.6 mg/dL (8.4-10.2); CARBON DIOXIDE 22 mmol/L (22-29); CHLORIDE 104 mmol/L (98-107); CREATININE, SERUM 0.62 mg/dL (0.57-1.11); EST GLOMERULAR FILTRATION RATE > 60 ML/MIN (60-); GLUCOSE 127 mg/dL (74-118); SODIUM 137 mmol/L (136-145)
[~2019-08-18] VITALS: Ht 162.6 cm; Wt 76.9 kg
[~2019-08-18 07:30] MED LIST changes: +ACETAMINOPHEN 1000 MG/100 ML 100 ML IV ONE; -DEXMEDETOMIDINE HCL 2 ML ONE; +IBUPROFEN 800MG/ 200ML 200 ML IV ONE; -LACTATED RINGER'S 1,000 ML ONE; +LIDOCAINE HCL (LTA) 4 ML SOLN ONE; -SODIUM CHLORIDE 0.9% 50ML 100 ML ONE; +[UNRECOGNIZED DRUG - OTHER] PO
--- OUTSIDE RECORDS SUMMARY | 2019-08-18 07:49 | XMS REPORT ---
Author Author [facility] t Organization [facility] Address [address] [place]. [address] [place] [address] Phone Unavailable Care Team Providers Care Supervisor [employer] Name Role Phone MATILDE GOMEZ NP PCP PAKZAKETURAH, INGRIS Attphys Unavailable Charles AYALA (NS) SHARMAINE Attphys Unavailable ELIZ PRINGLE Attphys Unavailable Kailash SHAH Attphys Unavailable MATILDE GOMEZ Attphys Unavailable Payers Payer Name Policy Type Policy Number Effective Date Expiration Date Charles atkinson [facility] [employer] [facility] [id number] 2014 00:00:00 [facility] [employer] [facility] [id number] 2014 00:00:00 [facility] [employer] [facility] [id number] 2014 00:00:00 [facility] [employer] [facility] [id number] 2014 00:00:00 [facility] [employer] [facility] [id number] 2014 00:00:00 [facility] Problems This patient has no known problems. Allergies, Adverse Reactions, Alerts Allergy Name Allergy Type Status Severity Reaction(s) Onset Date Inacti ve Date Treating Clinician Comments Source Phenytoin Allergy to Substance Active Mild RASH 2015-04-12 00:00:00 [facility] Medications Ordered Medication Name Filled Medication Name Start Date Stop Da te Current Medication? Ordering Clinician Indication Dosage Frequency Signature (SIG) Comments Components Source Amoxicillin 500 Mg Capsule Amoxicillin 500 Mg Capsule 2018-09-06 00:0 0:00 Yes Tala Juarez Md 500 Twice A Day for For Infection [facility] Albuterol Sulfate (Ventolin Hfa) 18 Gm Hfa.aer.ad Albu terol Sulfate (Ventolin Hfa) 18 Gm Hfa.aer.ad Yes As Needed [facility] Fluticasone/Salmeterol (Advair 250-50 Diskus) 1 Each D isk.w.dev Fluticasone/Salmeterol (Advair 250-50 Diskus) 1 Each Disk.w.dev Yes As Needed [facility] Lisinopril/Hydrochlorothiazide (Lisinopril-Hctz 10-12. 5 Mg Tab) 1 Each Tablet Lisinopril/Hydrochlorothiazide (Lisinopril-Hctz 10-12.5 Mg Tab) 1 Each Tablet Yes Daily [facility] Meloxicam 7.5 Mg Tablet Meloxicam 7.5 Mg Tablet Yes 15 Daily [facility] Levothyroxine Sodium 50 Mcg Tablet, 50 Mcg Oral Levoth yroxine Sodium 50 Mcg Tablet, 50 Mcg Oral 2015-04-12 00:00:00 No 50 Saray y [facility] Montelukast Sodium (Singulair) 10 Mg Tablet, 10 Mg Ora l Montelukast Sodium (Singulair) 10 Mg Tablet, 10 Mg Oral 2015-04-10 00:00:00 No 10 Daily [facility] Procedures Procedure Date / Time Performed Performing Clinician [facility] e X-ray of chest, two views 2018-11-03 00:00:00 MATILDE GOMEZ [facility] [place] thyroid 2018-05-18 00:00:00 SHARMAINE AYALA (EMMANUEL) [facility] Encounters Start Date/Time End Date/Time [facility] ID Source 2018-11-18 18:12:00 2018-11-18 19:10:00 Departed Emergency Room 1 KELLIE SHAH [facility] [id number] [facility] 2018-11-03 16:16:00 2018-11-03 16:16:00 Registered Clinic 3 MATILDE GOMEZ [facility] [id number] [facility] 2018-09-08 12:45:00 2018-09-08 12:45:00 Registered Clinic [facility] [id number] [facility] 2018-09-06 11:36:00 2018-09-06 12:31:00 Departed Emergency Room [facility] [id number] [facility] 2018-07-30 13:04:00 2018-07-30 13:04:00 Registered Clinic [facility] [id number] [facility] 2018-06-02 08:26:00 2018-06-02 08:26:00 Registered Clinic 3 SHARMAINE AYALA [facility] [id number] [facility] 2018-05-20 15:48:00 2018-05-20 15:48:00 Registered Clinic SHARMAINE HOLLAND [facility] [id number] [facility] 2018-05-18 16:01:00 2018-05-18 16:01:00 Registered Clinic 3 SHARMAINE AYALA [facility] [id number] [facility] 2017-07-08 15:43:00 2017-08-03 23:59:00 Discharged Recurring [facility] [id number] [facility] 2017-06-09 10:52:00 2017-07-04 23:59:00 Discharged Recurring [facility] [id number] [facility] 2017-05-19 10:49:00 2017-06-03 23:59:00 Discharged Recurring [facility] [id number] [facility] 2017-04-22 11:44:00 2017-04-23 12:33:00 Departed Emergency Room [facility] [id number] [facility] 2017-04-17 14:56:00 2017-04-17 14:56:00 Registered Clinic SHARMAINE EDOUARD [facility] [id number] [facility] 2013-06-30 08:46:16 2013-06-30 08:46:15 Outpatient [facility] [id number] 2013-03-24 11:31:04 2013-03-24 11:31:03 Outpatient [facility] [id number] 2013-02-04 09:16:11 2013-02-04 09:16:10 Outpatient [facility] [id number] Results Test Description Test Time Test Comments Results Result Comments Source CHEST 2 VIEWS 2019-08-15 14:00:00 [place] [address] Patient Name: KIRK JARAMILLO MR #: [id number] : 1975 Age/Sex: 44/F Req #: [id number] Adm Physician: Ordered by: INGRIS JANE MD Report #: [id number] Location: OR Room/Bed: Procedure: [id number] DX/CHEST 2 VIEWS Exam Date: 08/15/19 Exam Time: 1300 REPORT STATUS: Signed EXAM: CHEST 2 VIEWS DATE: 08/15/2019 1:00 PM INDICATION: Preoperative evaluation COMPARISON: 11/03/2018 FINDINGS: The trachea is midline. The lungs are symmetrically expanded without evidence for large focal consolidation, pneumothorax, or sig nificant pleural effusion. The cardiomediastinal silhouette and pulmonary vasculature are within normal limits. Partially visualized cervical fusion hardware noted No acute osseous abnormality is identified. The surrounding soft tissues are unremarkable. IMPRESSION: No acute cardiopulmonary process identified. Signed by: Dr. Tarun Combs MD on 08/15/2019 2:01 PM Dictated By: TARUN COMBS MD 00 Transcribed By: SHERLY on 08/15/19 140 COPY TO: INGRIS JANE MD MRI SPINE LUMBAR WO 2019-06-15 12:11:00 [place] [address] Patient Name: KIRK JARAMILLO MR #: [id number] : 1975 Age/Sex: 44/F Req #: [id number] Adm Physician: Ordered by: SHARMAINE AYALA MD Report #: [id number] Location: OR Room/Bed: Procedure: [id number] MRI/MRI SPINE LUMBAR WO Exam Date: Exam Time: REPORT STATUS: Signed Examination: MRI SPINE LUMBAR WO CONTRAST History: Low back pain with left leg pain. Comparison studies: None Technique: Sagittal, coronal and axial T2 , sagittal T1 and STIR; axial spin density oblique. Findings: Number of lumbar vertebral bodies: Five. Alignment: Normal lordosis. No scoliosis. Soft tissues: No T2 hyperintense inflammatory changes. Posterior paraspinal soft tissues and muscles: No abnormality. Lower thoracic cord: Normal in signal and morphology. The tip of the conus is at bottom of T12. Cauda equina: No masses. No arachnoiditis. Vertebrae: No fractures, infection or neoplasm. A 2.2 cm T1 and T2 hyperintense and STIR hypointense lesion is identified within the midline and left of midline at L2, consistent with a hemangioma. Additional smaller hemangiomata are identified in the left aspect of L3 and L4. Degenerative changes: L1-L2 through L4-L5: No abnormalities. L5-S1: Central and left central disc protrusion which flattens and posteriorly displaces the descending left S1 nerve root towards the left facet. Mild bilateral neural foraminal narrowing due to mild diffuse disc bulge. No canal stenosis. IMPRESSION: Degenerative changes at L5-S1 with a central and left central disc protrusion that posteriorly displaces and flattens the descending left S1 nerve root. No significant (not moderate or severe) foraminal stenosis. No canal stenosis. Hemangiomata from L2 through L4. Signed by: Dr. Nate Baltazar M.D. on 06/15/2019 12:20 PM Dictated By: NATE REEVES MD 1220 Transcribed By: SHERLY on 06/15/19 1220 COPY TO: SHARMAINE AYALA MD (NS) THYROID 2018-12-31 14:56:00 [facility] [address] [place] [address] Patient Name: KIRK JARAMILLO MR #: [id number] : 1975 Age/Sex: 43/F Req #: [id number] Adm Physician: Ordered by: ROBERT CHAVIRA M.D. Report #: [id number] Location: US Room/Bed: Procedure: [id number] US/US THYROID Exam Date: 12/31/18 Exam Time: 1253 REPORT STATUS: Signed Thyroid ultrasound. History: Thyroid nodules. Comparison: 05/18/2018. Discussion: Transverse and longitudinal images of the thyroid were obtained demonstrating heterogeneous echogenicity of the thyroid. The right thyroid lobe measures 4.2 x 1.9 x 1.7 cm. A heterogeneous partially calcified nodule is present in the interpolar region measuring 2.9 x 1.8 x 1.8 cm, previously measuring 2.5 x 1.8 x 1.9 cm. This nodule was previously biopsied. The left lobe measures 3.9 x 1.1 x 1.2 cm. 4 subcentimeter hypoechoic nodules/cysts are present , ranging in size from 0.4 - 0.7 cm in maximal diameter, without significant change. The isthmus measures 5 mm in thickness. 2 oval circumscribed hypoechoic nodules are present, measuring 0.8 x 0.6 x 0.7 cm and 1.0 x 0.6 x 0.7 cm on the left, previously measuring 0.8 and 1.3 cm. IMPRESSION: Multiple thyroid nodules. Slight increase in size of right thyroid nodule which was previously biopsied. Decrease in size of left isthmus nodule, previously described as 1.3 cm TI-RADS 4 nodule, now measuring 1 cm. Continued follow-up in one year may be obtained. Signed by: London Mendoza on 12/31/2018 3:14 PM Dictated By: LODNON MENDOZA MD 1514 Transcribed By: SHERLY on 12/31/181513 COPY TO: ROBERT CHAVIRA M.D. US BREAST LIMITED LEFT 2018-12-31 13:46:00 [place] [address] Patient Name: KIRK JARAMILLO MR #: [id number] : 1975 Age/Sex: 43/F Req #: [id number] [facility] Physician: Ordered by: ELIZ PRINGLE MD Report #: [id number] Location: Room/Bed: Procedure: [id number] US/US BREAST LIMITED LEFT Exam Date: Exam Time: REPORT STATUS: Signed #[id number] - USBRELIMLT ULTRASOUND OF THE LEFT BREAST : 12/31/2018 Comparison is made to exams dated: 05/20/2018 mammogram and 05/22/2016 mammogram - [facility]. Real-time ultrasound was performed on the left breast. There are no solid or cystic masses identified. IMPRESSION: BENIGN There is no sonographic evidence of malignancy. A 1 year screening mammogram is recommended. LONDON MENDOZA M.D. ct/marvin:12/31/2018 16:25:35 Signal Integrity Engineer: KARTHIK CARDOSO RDAZ, [facility] letter sent: Normal Exam Ultrasound BI-RADS: 2 Benign Dictated By: LONDON MENDOZA MD E lectronically Signed By: LONDON MENDOZA MD on 12/31/18 1625 Transcribed By: MARVIN on 12/31/18 1625 COPY TO: ELIZ PRINGLE MD KNEE 2 VIEW LT - HOPD 2018-11-18 19:01:00 [place] [address] Patient Name: KIRK JARAIMLLO MR #: [id number] : 1975 Age/Sex: 43/F Req #: [id number] Adm Physician: Ordered by: KELLIE SHAH MD Report #: [id number] Location: [facility] Room/Bed: Procedure: [id number] HOPD/KNEE 2 VIEW LT - HOPD Exam Date: 11/18/18 Exam Time: 1835 REPORT STATUS: Signed KNEE 2 VIEW LT - HOPD - 2 views HISTORY: Pain COMPARISON: None available. FINDINGS: Bones: No acute displaced fracture. Osseous alignment is within normal limits. Joints: The joint spaces are well-maintained. Soft tissues: The soft tissues appear unremarkable. IMPRESSION: No acute radiographic abnormality. Signed by: Dr. Chepe Davis MD on 11/18/2018 7:02 PM Dictated By: CHEPE DAVIS MD 01 Transcribed By: SHERLY on 11/18/181901 COPY TO: KELLIE HSAH MD CHEST 2 VIEWS 2018-11-03 16:57:00 [place] [address] Patient Name: KIRK JARAMILLO MR #: [id number] : 1975 Age/Sex: 43/F Req #: [id number] Adm Physician: Ordered by: MATILDE GOMEZ NP Report #: [id number] Location: [facility] Room/Bed: Procedure: [id number] DX/CHEST 2 VIEWS Exam Date: Exam Time: REPORT STATUS: Signed EXAMINATION: CHEST 2 VIEWS INDICATION: Asthma COMPARISON: None FINDINGS: LINES/TUBES:None LUNGS:The lungs are well-inflated. No focal consolidation or pulmonary edema. PLEURA:No pleural effusion or pneumothorax. MEDIASTINUM:The cardiomediastinal silhouette appears normal in size and shape. BONES/SOFT TISSUES:No acute osseous injury. ABDOMEN:No free air under the diaphragm. IMPRESSION: No focal pneumonia or pulmonary edema. Signed by: Grecia Serrano MD on 11/03/2018 4:58 PM Dictated By: GRECIA SERRANO MD 57 Transcribed By: SHERLY on 11/03/181657 COPY TO: MATILDE GOMEZ NP Anti-Thyroglobulin Antibody 2018-09-13 06:30:00 Test Item Anti-Thyroglobulin Antibody (test code = 8098-6) <1.0 Reference Range:0.0 - 0.9 IU/mL Thyroglobulin Antibody measured by Rhonda Coult er MethodologyTesting performed by:[employer] [address] [place], [place] [id number]: Kenny Og [facility] Thyroid Stimulating Ilicuxdyesrctz1439-28-35 06:30:00* Test Item Value Reference Range Interpretation Comments Thyroid Stimulating Immunoglobulin (test code = 63520-2) <0.10 Reference Range: 0.00 - 0.55 IU/LTesting performed by:[facility] [address] [place] [id number]. Pankaj Martinez [facility] Center[facility]yroid Peroxidase Yqqiyztiix0780-32-03 05:21:00 * Test Item Value Reference Range Interpretation Comments Thyroid Peroxidase Antibodies (test code = 8099-4) 17 0-3 4 Performed at: [facility] [address] [id number] Director: Kenny Og MD, Phone: [phone] Health [facility] HospitalFree Thyroxine Zgdis2152-91-33 13:48:00* Test Item Value Reference Range Interpretation Comments Free Thyroxine Index (test code = 26859-7) 2.2302 1.4-3.8 [facility] (T4)2018-09-08 13:48:00* Test Item Value Reference Range Interpretation Comments Thyroxine (T4) (test code = 3026-2) 8.04 4.5-10.9 Our current method for Total T4 is not recommended for use as the only marker fo r evaluating patients for thyroid disorders.[facility] Hospital[facility]iodothyronine (T3) Nvueul5681-53-85 13:48:00* Test Item Value Reference Range Interpretation Comments Triiodothyronine (T3) Uptake (test code = 3050-2) 27.74 22.5 -37.0 [facility] Hormone (TSH) 2018-09-08 13:48:00* Test Item Value Reference Range Interpretation Comments Thyroid Stimulating Hormone (TSH) (test code = 40036-2) 0.502 0.350-4.940 [facility] Lhltnfaua3046-91-88 14:16:00* Test Item Value Reference Range Interpretation Comments Free Thyroxine (test code = 3024-7) 0.96 0.9-1.8 [facility] HospitalFNA US GUIDED 1ST PLWNUI1255-18-27 15:14:00 [place] [address] Patient Name: KIRK JARAMILLO MR #: [id number] : 1975 Age/Sex: 43/F Req #: [id number] Adm Physician: Ordered by: SHARMAINE AYALA MD Report #: [id number] Location: US Room/Bed: Procedure: IR /FNA US GUIDED 1ST LESION Exam Date: Exam Time: REPORT STATUS: Signed Ultrasound-g uided right thyroid nodule fine needle aspiration Pre-Procedure Diagnosis: Right sided thyroid nodule Post-procedure Diagnosis: Right sided thyroid nodul e Spanish Interpreter: Meenakshi Argueta MD Sedation: 1% lidocaine local anesthesia. Estimate blood loss: None. Complications: None Implants/Grafts: None Spec imen: 25-gauge fine needle aspiration x 5. Procedure/Findings: Informed consent was obtained and the patient positioned supine in the ultrasound suite . A timeout was performed, followed by preliminary ultrasound of the right ne ck demonstrating a right sided thyroid nodule, corresponding to the suspicious nodule noted on ultrasound from 05/18/18. A path to the lesion was identified. The neck was prepped and draped in standard sterile fashion. Local anesthe jacob with 1% subcutaneous lidocaine was administered. Using real-time ultrasoun d guidance, a 25 gauge needle was advanced into the nodule. A total of five 25 -gauge fine needle aspirates were obtained with ultrasound guidance and were s ubmitted to the Pathologist who was present on site for review who confirmed s atisfactory specimen. Post procedural ultrasound demonstrated no immediat e complication. At the end of the procedure a sterile dressing was applied. Impression: Ultrasound guided fine needle aspiration of right sided thyroid nodule as above. Signed by: Dr. Meenakshi Argueta MD on 06/02/2018 3:20 PM Dictated By: MEENAKSHI ARGUETA MD Electronically Signed By: MEENAKSHI ARGUETA MD on 05/08 10/22 1520 Transcribed By: SHERLY on 06/02/18 1520 COPY TO: SHARMAINE AYALA MD (NS) MAMMOGRAPHY DIGITAL SCR JYGMO2452-14-39 16:25:00 [facility] [address] [place] [address] Patient Name: KIRK JARAMILLO MR #: [id number] : 1975 Age/Sex: 43/F Req #: [id number] Adm Physician: Ordered by: SHARMAINE AYALA MD Report #: [id number] Location: MAMMO Room/Bed: Procedure: [id number] MG /MAMMOGRAPHY DIGITAL SCR BILAT Exam Date: 05/20/18 E xam Time: 1550 REPORT STATUS: Piedad kyle #[id number] - MGSCRBIL #BILATERAL DIGITAL SCREENING MAMMOGRAM WITH CAD: 05/20/2018 CLINICAL: Routine screening. Comparison is made to exam dated: 08/02/2015 mammogram - [facility]. Current st udy contains 6 films. The tissue of both breasts is heterogeneously dense. T his may lower the sensitivity of mammography. Current study was also evalu ated with a Computer Aided Detection (CAD) system. There are benign calcific ations in both breasts. There also is a biopsy clip in the right breast. The previously described focal asymmetry in the deep right breast best seen on the MLO view is stable. No significant masses, calcifications, or other findin gs are seen in either breast. There has been no significant interval change. IMPRESSION: BENIGN There is no mammographic evidence of malignancy. A 1 year screening mammogram is recommended. The patient will be notified by ky beasley of the results. Abisai Estevez Jr., D.O. cw/:06/04/2018 11 :25:13 Signal Integrity Engineer: Sharmaine VÁSQUEZ(R)(M), [facility] letter sent: Compared to Prior B9 Mammogram BI-RADS: 2 Jerod ign Dictated By: ABISAI ESTEVEZ DO 1125 Transcribed By: MARVIN on 06/04/18 1125 COPY TO: SHARMAINE BIRMINGHAM MD () US WIZONSO4669-22-50 16:47:00 [place] [address] Patient Name: KIRK JARAMILLO MR #: [id number] : 1975 Age/Sex: 43/F Req #: [id number] Adm Physician: Ordered by: SHARMAINE AYALA MD Report #: [id number] Location: US Room/Bed: Procedure: [id number] US /US THYROID Exam Date: 05/18/18 Exam Time: 1618 REPORT STATUS: Signed EXAMINATION: Thyroid ultrasound. CLINICAL HISTORY: Abnormal thyroid blood tests C OMPARISON: None. . DISCUSSION: Transverse and longitudinal images of the t hyroid were obtained utilizing grayscale and color Doppler modalities. The right thyroid lobe measures 4.6 x 2.3 x 2 cm and shows normal echogenicity. 2.5 x 1.8 x 1.9 cm solid (2.), Hypoechoic (2.), Wider than tall (0 point) S moothly marginated (0 point), macrocalcifications (1.) TR 4 5 mm cyst in the u pper pole. The left thyroid lobe measures 4.2 x 1.3 x 1.1 cm and shows no rmal echogenicity. 0.7 x 0.5 x 0.6 cm [...] Hypoechoic (2.), Wider than tall (0 point), smoothl y marginated (0 point), though calcifications (0 point), TR 4 There is no a denopathy. IMPRESSION: Thyroid nodules as above. Ultrasound-kelly ded fine-needle aspiration of the 2.5 cm TI-RADS 4 nodule in the right lobe is suggested. Follow-up thyroid ultrasound in one year is suggested to assess for stability of the 1.3 cm TI-RADS 4 nodule in the isthmus. The staff physician below has personally reviewed this exam on the date of dictation. Signed by: Dr. Kathia Foster M.D. on 05/18/2018 4:53 PM Dictated By: KATHIA FOSTER MD 52 COPY TO: SHARMAINE AYALA MD (NS) SP LUMBAR AP LATERAL 2-3VWS [place] [address] Patient Name: KIRK JARAMILLO MR #: [id number] : 1975 Age/Sex: 42/F Req #: [id number] Adm Physician: Ordered by: SHARMAINE AYALA MD Report #: [id number] Location: US Room/Bed: Procedure: [id number] DX/SP LUMBAR AP LATERAL 2-3 VWS Exam Date: 04/17/17 Exam Time: 1610 REPORT STATUS: Signed PROCEDURE: X-RAY LUMBAR SPINE, TWO VIEWS COMPARISON: None. INDICATIONS: LOWER BACK PAIN FINDINGS: There are 5 marta mbar-type vertebral bodies. The vertebral bodies are well-aligned without josy dence of spondylolisthesis. There are no acute, displaced fractures, lytic or blastic lesions. Minimal intervertebral disc space narrowing at L5-S1. The v ertebral body heights are well-maintained. The sacroiliac joints are unremark able. CONCLUSION: Normal lumbar no acute abnormalities. Minimal deg enerative disc changes L5-S1. Buck Antonio M.D. Dictated by : Buck Antonio M.D. on 04/17/2017 at 18:19 Electronically approved by: Buck Antonio M.D. on 04/17/2017 at 18:19 Dictated By : BUCK ANTONIO MD 181 9 Transcribed By: SHELL on 04/17/17 181 COPY TO: SHARMAINE AYALA MD (NS) [place] [address] Patient Name: KIRK JARAMILLO MR #: [id number] : 1975 Age/Sex: 42/F Req #: [id number] Adm Physician: Ordered by: SHARMAINE AYALA MD Report #: [id number] Location: Room/Bed: Procedure: [id number] US/US LIVER Exam Date: 04/17 Exam Time: 1509 REPORT STATUS: Signed IN OCEDURE: US LIVER COMPARISON: None. INDICATIONS: Elevated LFTs TECHN IQUE: Zuniga-scale and color doppler transverse and longitudinal images of the right upper quadrant of the abdomen were obtained. FINDINGS: Live r: 15.6 cm in right mid-clavicular line. Increased echogenicity. No masses. Main portal vein: 1.2 cm, hepatopetal flow Gallbladder: No stones, sludge, wall thickening, or pericholecystic fluid. Common Bile Duct: 0.3 cm Son ographic Nichole's sign: Negative Right kidney: 11.3 cm. Normal echogenici ty. No solid masses or hydronephrosis. Pancreas: The visualized portion s of the neck and proximal body are unremarkable. Inferior vena cava: P atent Aorta: Within normal limits Ascites: None in the right upper quadrant of the abdomen. CONCLUSION: 1. Mild hepatomegaly with diffuse fatty infiltration. No focal lesions. Buck Antonio M.D. Dictat ed by: Buck Antonio M.D. on 04/17/2017 at 17:20 Electronically appr saritha by: Buck Antonio M.D. on 04/17/2017 at 17:20 Dictat ed By: BUCK ANTONIO MD 1720 COPY TO: SHARMAINE AYALA MD (NS)
--- OUTSIDE RECORDS SUMMARY | 2019-08-18 07:49 | XMS REPORT ---
Author Author KIRK Morrison Organization Unknown Address Unknown Phone Care Team Providers Care Building Maintenance Worker Name Role Phone Prince Nguyen PP Unavailable Reason for Referral No Reason for Referral was given. History of Present Illness No HPI available. Problems * Normal Routine History And Physical Adult (V70.0); (Active) Medication * No Active Medications Allergies and Adverse Reactions * Dilantin CAPS (Active) Past Medical History * History of Asthma (493.90); (Resolved) * History of Hypertension (401.9); (Resolved) * History of Nonepileptic Seizures (780.39); (Resolved) * History of Summary Of Previous Pregnancies 2 (Total No.) ( Resolved) * History of Herniated Cervical Disc (722.0); (Resolved) * History of Gestational Diabetes Mellitus (V12.21); (Resolved) Procedures Procedure Procedure Date Date Completed Status History Of Prior Surgery - - Denied Immunization * Influenza Family History * Maternal history of Diabetes Mellitus (V18.0); (Active) Social History * Marital History - Currently (Active) * Never A Smoker (Active) * Being A Social Drinker (Active) * No History of Drug Use (Denied) Advance Directives * No Advance Directives available. Encounters * AUDIT 02/04/2013
--- OUTSIDE RECORDS SUMMARY | 2019-08-18 07:49 | XMS REPORT | Continuity of Care Document ---
Author Author [facility]IR[facility] [employer] Address Unknown Phone Unavailable Care Team Providers Care Undertaker Helper Name Role Phone Curious Hat Information Exchange Unavailable Un available Problems Problem Status Onset Date Classification Date Reported Comments Source Vaccines Prophylactic Need Against Influenza Active 06/30/2013 [facility] Herniated Cervical Disc Active 06/30/2013 [facility] Hypertension Active 06/30/2013 [facility] Asthma Active 06/30/2013 [facility] Acute Upper Respiratory Infection Active 06/30/2013 [facility] Medications Medication Details Route Status Patient Instructions Ordering Provider Order Date Source PredniSONE 20 MG Oral Tablet ; Start Date: 06/28/2013; End Date: (Active) Active 06/28/2013 [facility] Nasonex 50 MCG/ACT Nasal Suspension ; Start Date: 06/28/2013; End Date: (Active) Active 06/28/2013 [facility] Azithromycin 250 MG Oral Tablet ; Start Date: 06/28/2013; End Date: (Active) Active 06/28/2013 [facility] Cefdinir 300 MG Oral Capsule ; Start Date: 03/24/2013; End Date: (Active) Active 03/24/2013 [facility] Albuterol Sulfate 1.25 MG/3ML Inhalation Nebulization Solution ; Start Date: 03/24/2013; End Date: 04/1899 (Active) Active 03/24/2013 [facility] Gabapentin 100 MG Oral Capsule ; Start Date: 02/04/2013 (Active) Active 02/04/2013 [facility] Ventolin HFA 108 (90 Base) MCG/ACT Inhal ation Aerosol Solution ; Start Date: 02/04/2013; End Date: 04/1899 (Active) Active 02/04/2013 [facility] Lisinopril-Hydrochlorothiazide 10-12.5 MG Oral Tablet ; Start Date: ; End Date: (Active) Inactive [facility] Advair Diskus 500-50 MCG/DOSE Inhalation Aerosol Powder Breath Activated ; Start Date: ; End Date: 04/1899 (Active) Inactive [facility] Montelukast Sodium 10 MG Oral Tablet ; Start Date: ; End Date: (Active) Inactive [facility] No Active Medications No Activ e Medications Active [facility] Allergies, Adverse Reactions, Alerts Substance Category Reaction Severity Reaction type Status Date Reported Comments Source Dilcarito CAPS drug allergy drug allergy Active [facility] Immunizations Immunization Date Given Site Status Last Updated Comments Source Influenza 02/04/2013 completed [facility] Influenza completed [facility] Results No Data Provided for This Section Pathology Reports No Data Provided for This Section Diagnostic Reports No Data Provided for This Section Consultation Notes No Data Provided for This Section Discharge Summaries No Data Provided for This Section History and Physicals No Data Provided for This Section Vital Signs No Data Provided for This Section Encounters Location Location Details Encounter Type Encounter Number Reason For Visit Attending Provider ADM Date DC Date Status Source AUDIT [id number] 02/04/2013 02/04/2013 [facility] AUDIT [id number] 03/24/2013 03/24/2013 [facility] John CHOI cornelio: SHARMAINE AYALA, Status: Pen, Time: 10:00 AM [id number] 05/09/2013 03/24/2013 [facility] AUDIT [id number] 06/30/2013 06/30/2013 [facility] Procedures No Data Provided for This Section Assessment and Plan No Data Provided for This Section Plan of Care Plan of Care Date Source Asthma action plan, adult 02/04/2013 [facility]hma action plan, adult 03/24/2013 Routine 06/30/2013 [facility] Asthma action plan, adult 02/04/2013 Rou tineAsthma action plan, adult 03/24/2013 Routine 03/24/2013 [facility] Social History Social History Date Source Marital History - Currently (Active) Never A Smoker (Active) Being A Social Drinker (Active) No History of Drug Use (Denied) 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 06/30/2013 [facility] Advance Directives Advance Dir ectives No Advance Directives available. 03/24/2013 [facility] Advance Directives Advance Dir ectives No Advance Directives available. 02/04/2013 [facility] Functional Status No Data Provided for This Section
--- OUTSIDE RECORDS SUMMARY | 2019-08-18 07:49 | XMS REPORT ---
Author Author KIRK Ratliff Organization Unknown Address Unknown Phone Care Team Providers Care Physical Anthropologist Name Role Phone Katharina Ratliff PP Unavailable Reason for Referral No Reason for Referral was given. History of Present Illness No HPI available. Problems * Normal Routine History And Physical Adult (V70.0); (Active) * Vaccines Prophylactic Need Against Influenza (V04.81); (Active) * Herniated Cervical Disc (722.0); (Active) * Hypertension (401.9); (Active) * Asthma (493.90); (Active) * Acute Upper Respiratory Infection (465.9); (Active) Medication * Lisinopril-Hydrochlorothiazide 10-12.5 MG Oral Tablet; TAKE 1 TABLET DAILY.; Start Date: ; End Date: (Active) * Advair Diskus 500-50 MCG/DOSE Inhalation Aerosol Powder Breath Activated; INHALE 1 PUFF TWICE DAILY.; Start Date: ; End Date: (Active) * Montelukast Sodium 10 MG Oral Tablet; TAKE 1 TABLET DAILY.; Start Date: ; End Date: (Active) * Gabapentin 100 MG Oral Capsule; Take 1 po qhs for 2 days, then 2 po qhs for two days, then 3 po qhs ongoing.; Start Date: 02/04/2013 (Active) * Ventolin HFA 108 (90 Base) MCG/ACT Inhalation Aerosol Solution; INHALE 2 PUFFS 3 TIMES DAILY NEEDED.; Start Date: 02/04/2013; End Date: (Active) * Cefdinir 300 MG Oral Capsule; TAKE 1 CAPSULE TWICE DAILY; Start Date: 03/24/2013; End Date: (Active) * Albuterol Sulfate 1.25 MG/3ML Inhalation Nebulization Solution; USE 1 UNIT DOSE IN NEBULIZER EVERY 4 TO 6 HOURS NEEDED.; Start Date: 03/24/2013; End Date: (Active) Allergies and Adverse Reactions * Dilantin CAPS (Active) Past Medical History * History of Nonepileptic Seizures (780.39); (Resolved) * History of Summary Of Previous Pregnancies 2 (Total No.) ( Resolved) * History of Gestational Diabetes Mellitus (V12.21); (Resolved) Procedures Procedure Procedure Date Date Completed Status History Of Prior Surgery - - Denied Immunization * Influenza * Influenza (Lot #: [id number]) - Administered on: 02/04/2013 Family History * Maternal history of Diabetes Mellitus (V18.0); (Active) Social History * Marital History - Currently (Active) * Never A Smoker (Active) * Being A Social Drinker (Active) * No History of Drug Use (Denied) Treatment Plan * Asthma action plan, adult 02/04/2013 Routine * Asthma action plan, adult 03/24/2013 Routine Advance Directives * No Advance Directives available. Encounters * AUDIT 03/24/2013 * FUP, Provider: SHARMAINE AYALA, Status: Leland, Time: 10:00 AM 05/09/2013
--- OUTSIDE RECORDS SUMMARY | 2019-08-18 07:49 | XMS REPORT ---
Author Author KIRK Covarrubias Organization Unknown Address Unknown Phone Care Team Providers Care Garden Worker Name Role Phone Satish Jayleen PP Unavailable Reason for Referral No Reason [...] Start Date: 02/04/2013; End Date: (Active) * Montelukast Sodium 10 MG Oral Tablet; TAKE 1 TABLET DAILY.; Start Date: ; End Date: (Active) * Albuterol Sulfate 1.25 MG/3ML Inhalation Nebulization Solution; USE 1 UNIT DOSE IN NEBULIZER EVERY 4 TO 6 HOURS NEEDED.; Start Date: 03/24/2013; End Date: (Active) * PredniSONE 20 MG Oral Tablet; TAKE 1 TABLET DAILY WITH FOOD.; Start Date: 06/28/2013; End Date: (Active) * Nasonex 50 MCG/ACT Nasal Suspension; INSTILL 2 SPRAY DAILY each nostril; Start Date: 06/28/2013; End Date: (Active) * Azithromycin 250 MG Oral Tablet; TAKE 2 TABLETS ON DAY 1 THEN TAKE 1 TABLET A DAY FOR 4 DAYS.; Start Date: 06/28/2013; End Date: (Active) Allergies and Adverse Reactions * Dilantin CAPS (Active) Past Medical History * History of Nonepileptic Seizures (780.39); (Resolved) * History of Summary Of Previous Pregnancies 2 (Total No.) ( Resolved) * History of Gestational Diabetes Mellitus (V12.21); (Resolved) Procedures Procedure Procedure Date Date Completed Status History Of Prior Surgery - - Denied Immunization * Influenza * Influenza (Lot #: [id number]) - Administered on: 02/04/2013 Family History * Maternal history of Diabetes Mellitus (V18.0); (Active) Social History * Marital History - Currently (Active) * Never A Smoker (Active) * Being A Social Drinker (Active) * No History of Drug Use (Denied) * Occupation: Comments: DIGITAL MARKETING CONSULTANT (Active) Treatment Plan * Asthma action plan, adult 02/04/2013 Routine * Asthma action plan, adult 03/24/2013 Routine Advance Directives * No Advance Directives available. Encounters * AUDIT 06/30/2013
[2019-08-18] MEDS ORDERED: CEFAZOLIN SOD 1 GM/NS 50ML 50 ML IV ONE (08:35)
[2019-08-18] MEDS ORDERED: THROMBIN FOR SOLN 5,000 UNIT VIAL ONE (08:42)
[2019-08-18] MEDS ORDERED: BACITRACIN 50,000 UNIT VIAL ONE (08:42)
[2019-08-18] MEDS ORDERED: LIDOCAINE 1% W/EPINEPHRINE 20 ML VIAL ONE (08:42)
[2019-08-18] MEDS ORDERED: SCOPOLAMINE 1.5 MG PATCH ONE (10:29)
[2019-08-18] MEDS ORDERED: ONDANSETRON HCL INJ 2MG/ML 2ML 2 MG/ML VIAL IV PRN (11:45)
[2019-08-18] MEDS ORDERED: ALBUTEROL SULFATE HFA 8GM INHALATION AEROSOL INH SCH (11:45)
[2019-08-18] MEDS ORDERED: PROMETHAZINE HCL (IM) 25 MG/ML VIAL IM PRN (11:45)
[2019-08-18] MEDS ORDERED: MAGNESIUM/ALUMINUM/SIMETHICONE 30 ML UDC PO PRN (11:45)
[2019-08-18] MEDS ORDERED: DEXTROSE 50% SYRINGE 50 ML IV PRN (11:45)
[2019-08-18] MEDS ORDERED: ACETAMINOPHEN 325 MG TAB PO PRN (11:45)
[2019-08-18] MEDS ORDERED: HYDROMORPHONE 2MG/ML 2 MG/ML ML IV PRN (11:45)
[2019-08-18] MEDS ORDERED: MORPHINE SULFATE 5 MG/ML VIAL IM PRN (11:45)
[2019-08-18] MEDS ORDERED: MEPERIDINE HCL INJ 25 MG/ML VIAL ONE (12:04)
--- OUTSIDE RECORDS SUMMARY | 2019-08-18 13:01 | XMS REPORT ---
Author Author [facility] t Organization [facility] Address [address] [place]. [address] [place] [id number] Phone Unavailable Care Team Providers Care Account Support Analyst Name Role Phone MATILDE GOMEZ NP PCP PAKZAKETURAH, INGRIS Attphys Unavailable Charles AYALA (NS) SHARMAINE Attphys Unavailable ELIZ PRINGLE Attphys Unavailable Kailash SHAH Attphys Unavailable MATILDE GOMEZ Attphys Unavailable Payers Payer Name Policy Type Policy Number Effective Date Expiration Date Charles atkinson [facility] [id number] 2014 00:00:00 [facility] [id number] 2014 00:00:00 [facility] [id number] 2014 00:00:00 [facility] [id number] 2014 00:00:00 [facility] [id number] 2014 00:00:00 [facility] Problems This patient has no known problems. Allergies, Adverse Reactions, Alerts Allergy Name Allergy Type Status Severity Reaction(s) Onset Date Inacti ve Date Treating Clinician Comments Source Phenytoin Allergy to Substance Active Mild RASH 2015-04-12 00:00:00 [facility] Medications Ordered Medication Name Filled Medication Name Start Date Stop Da te Current Medication? Ordering Clinician Indication Dosage Frequency Signature (SIG) Comments Components Source Amoxicillin 500 Mg Capsule Amoxicillin 500 Mg Capsule 2018-09-06 00:0 0:00 Yes Tala Juarez Md 500 Twice A Day for For Infection [facility] Albuterol Sulfate (Ventolin Hfa) 18 Gm Hfa.aer.ad Albu terol Sulfate (Ventolin Hfa) 18 Gm Hfa.aer.ad Yes As Needed [facility] Fluticasone/Salmeterol (Advair 250-50 Diskus) 1 Each D isk.w.dev Fluticasone/Salmeterol (Advair 250-50 Diskus) 1 Each Disk.w.dev Yes As Needed [facility] Lisinopril/Hydrochlorothiazide (Lisinopril-Hctz 10-12. 5 Mg Tab) 1 Each Tablet Lisinopril/Hydrochlorothiazide (Lisinopril-Hctz 10-12.5 Mg Tab) 1 Each Tablet Yes Daily [facility] Meloxicam 7.5 Mg Tablet Meloxicam 7.5 Mg Tablet Yes 15 Daily [facility] Levothyroxine Sodium 50 Mcg Tablet, 50 Mcg Oral Levoth yroxine Sodium 50 Mcg Tablet, 50 Mcg Oral 2015-04-12 00:00:00 No 50 Saray y [facility] Montelukast Sodium (Singulair) 10 Mg Tablet, 10 Mg Ora l Montelukast Sodium (Singulair) 10 Mg Tablet, 10 Mg Oral 2015-04-10 00:00:00 No 10 Daily [facility] Procedures Procedure Date / Time Performed Performing Clinician [facility] e X-ray of chest, two views 2018-11-03 00:00:00 MATILDE GOMEZ [facility] US thyroid 2018-05-18 00:00:00 SHARMAINE AYALA (EMMANUEL) [facility] Encounters Start Date/Time End Date/Time En[facility] ID Source 2018-11-18 18:12:00 2018-11-18 19:10:00 Departed Emergency Room 1 KELLIE SHAH [facility] [id number] [facility] 2018-11-03 16:16:00 2018-11-03 16:16:00 Registered Clinic 3 MATILDE GOMEZ [facility] [id number] [facility] 2018-09-08 12:45:00 2018-09-08 12:45:00 Registered Clinic [facility] [id number] [facility] 2018-09-06 11:36:00 2018-09-06 12:31:00 Departed Emergency Room [facility] [id number] [facility] 2018-07-30 13:04:00 2018-07-30 13:04:00 Registered Clinic [facility] [id number] [facility] 2018-06-02 08:26:00 2018-06-02 08:26:00 Registered Clinic 3 SHARMAINE AYALA [facility] [id number] [facility] 2018-05-20 15:48:00 2018-05-20 15:48:00 Registered Clinic SHARMAINE HOLLAND [facility] [id number] [facility] 2018-05-18 16:01:00 2018-05-18 16:01:00 Registered Clinic 3 SHARMAINE AYALA [facility] [id number] [facility] 2017-07-08 15:43:00 2017-08-03 23:59:00 Discharged Recurring [facility] [id number] [facility] 2017-06-09 10:52:00 2017-07-04 23:59:00 Discharged Recurring [facility] [id number] [facility] 2017-05-19 10:49:00 2017-06-03 23:59:00 Discharged Recurring [facility] [id number] [facility] 2017-04-22 11:44:00 2017-04-23 12:33:00 Departed Emergency Room [facility] [id number] [facility] 2017-04-17 14:56:00 2017-04-17 14:56:00 Registered Clinic SHARMAINE EDOUARD [facility] [id number] [facility] 2013-06-30 08:46:16 2013-06-30 08:46:15 Outpatient [facility] [id number] 2013-03-24 11:31:04 2013-03-24 11:31:03 Outpatient [facility] [id number] 2013-02-04 09:16:11 2013-02-04 09:16:10 Outpatient [facility] [id number] Results Test Description Test Time Test Comments Results Result Comments Source CHEST 2 VIEWS 2019-08-15 14:00:00 [place] [address] Patient Name: KIRK JARAMILLO MR #: [id number] : 1975 Age/Sex: 44/F Req #: [id number] Adm Physician: Ordered by: INGRIS JANE MD Report #: [id number] Location: OR Room/Bed: Procedure: [id number] DX/CHEST 2 VIEWS Exam Date: 08/15/19 Exam [...] MD MRI SPINE LUMBAR WO 2019-06-15 12:11:00 [place] [address] Patient Name: KIRK JARAMILLO MR #: [id number] : 1975 Age/Sex: 44/F Req #: [id number] Adm Physician: Ordered by: SHARMAINE AYALA MD Report #: [id number] Location: OR Room/Bed: Procedure: [id number] MRI/MRI SPINE LUMBAR WO Exam Date: Exam [...] SHARMAINE AYALA MD (NS) THYROID 2018-12-31 14:56:00 [facility] [address] [place] [address] Patient Name: KIRK JARAMILLO MR #: [id number] : 1975 Age/Sex: 43/F Req #: [id number] Adm Physician: Ordered by: ROBERT CHAVIRA M.D. Report #: [id number] Location: US Room/Bed: Procedure: [id number] US/US THYROID Exam Date: 12/31/18 Exam Time: [...] Mendoza on 12/31/2018 3:14 PM Dictated By: LONODN MENDOZA MD 1514 Transcribed By: SHERLY on 12/31/181513 COPY TO: ROBERT CHAVIRA M.D. US BREAST LIMITED LEFT 2018-12-31 13:46:00 [place] [address] Patient Name: KIRK JARAMILLO MR #: [id number] : 1975 Age/Sex: 43/F Req #: [id number] [facility] Physician: Ordered by: ELIZ PRINGLE MD Report #: [id number] Location: Room/Bed: Procedure: [id number] US/US BREAST LIMITED LEFT Exam Date: Exam Time: REPORT STATUS: Signed #[id number] - USBRELIMLT ULTRASOUND OF THE LEFT BREAST : 12/31/2018 Comparison is made to exams dated: 05/20/2018 mammogram and 05/22/2016 mammogram - [facility]. Real-time ultrasound was performed on the left breast. There are no solid or cystic masses identified. IMPRESSION: BENIGN There is no sonographic evidence of malignancy. A 1 year screening mammogram is recommended. LONDON MENDOZA M.D. ct/marvin:12/31/2018 16:25:35 Housekeeping Supervisor Hotel: [facility]ARTHIK CARDOSO [facility], [facility] letter sent: Normal Exam Ultrasound BI-RADS: 2 Benign Dictated By: LONDON MENDOZA MD E lectronically Signed By: LONDON MENDOZA MD on 12/31/18 1625 Transcribed By: MARVIN on 12/31/18 1625 COPY TO: ELIZ PRINGLE MD KNEE 2 VIEW LT - HOPD 2018-11-18 19:01:00 [place] [address] Patient Name: KIRK JARAMILLO MR #: [id number] : 1975 Age/Sex: 43/F Req #: [id number] Adm Physician: Ordered by: KELLIE SHAH MD Report #: [id number] Location: [facility] Room/Bed: Procedure: [id number] HOPD/KNEE 2 VIEW LT - HOPD Exam [...] By: SHERLY on 11/18/181901 COPY TO: KELLIE SHAH MD CHEST 2 VIEWS 2018-11-03 16:57:00 [place] [address] Patient Name: KIRK JARAMILLO MR #: [id number] : 1975 Age/Sex: 43/F Req #: [id number] Adm Physician: Ordered by: MATILDE GOMEZ NP Report #: [id number] Location: [facility] Room/Bed: Procedure: [id number] DX/CHEST 2 VIEWS Exam Date: Exam Time: [...] measured by Rhonda Coult er MethodologyTesting performed by:[facility] [address] [place], [place] [id number]: Kenny Og [facility] Thyroid Stimulating Piiqpzjjsqguyb7631-53-27 06:30:00* Test Item Value Reference Range Interpretation Comments Thyroid Stimulating Immunoglobulin (test code = 10885-8) <0.10 Reference Range: 0.00 - 0.55 IU/LTesting performed by:[facility] [id number] [place] [id number]. Pankaj Martinez [facility] Zkarxqhijs2138-72-32 05:21:00 * Test Item Value Reference Range Interpretation Comments Thyroid Peroxidase Antibodies (test code = 8099-4) 17 0-3 4 Performed at: [facility] [address] [id number] Director: Kenny Og MD, Phone: [phone]Free Thyroxine Pknkc8818-28-06 13:48:00* Test Item Value Reference Range Interpretation Comments Free Thyroxine Index (test code = 56747-2) 2.2302 1.4-3.8 [facility]4)2018-09-08 13:48:00* Test Item Value Reference Range Interpretation Comments Thyroxine (T4) (test code = 3026-2) 8.04 4.5-10.9 Our current method for Total T4 is not recommended for use as the only marker fo r evaluating patients for thyroid disorders.[facility]iodothyron[facility] (T3) Wcipgp7727-22-40 13:48:00* Test Item Value Reference Range Interpretation Comments Triiodothyronine (T3) Uptake (test code = 3050-2) 27.74 22.5 -37.0 [facility] Hormone (TSH) 2018-09-08 13:48:00* Test Item Value Reference Range Interpretation Comments Thyroid Stimulating Hormone (TSH) (test code = 29707-7) 0.502 0.350-4.940 [facility] Moaxkxwbf6379-03-71 14:16:00* Test Item Value Reference Range Interpretation Comments Free Thyroxine (test code = 3024-7) 0.96 0.9-1.8 [facility] US GUIDED 1ST [id number] 15:14:00 [place] [address] Patient Name: KIRK JARAMILLO MR #: [id number] : 1975 Age/Sex: 43/F Req #: [id number] Adm Physician: Ordered by: SHARMAINE AYALA MD Report #: [id number] Location: US Room/Bed: Procedure: IR /FNA US GUIDED 1ST LESION Exam Date: Exam Time: REPORT STATUS: Signed Ultrasound-g uided right thyroid nodule fine needle aspiration Pre-Procedure Diagnosis: Right sided thyroid nodule Post-procedure Diagnosis: Right sided thyroid nodul e Infant Caregiver: Meenakshi Argueta MD Sedation: 1% lidocaine local [...] SHARMAINE AYALA MD (NS) MAMMOGRAPHY DIGITAL SCR [id number] 16:25:00 [facility] [address] [place] [address] Patient Name: KIRK JARAMILLO MR #: [id number] : 1975 Age/Sex: 43/F Req #: [id number] Adm Physician: Ordered by: SHARMAINE AYALA MD Report #: [id number] Location: MAMMO Room/Bed: Procedure: [id number] MG /MAMMOGRAPHY DIGITAL SCR BILAT Exam Date: 05/20/18 E xam Time: 1550 REPORT STATUS: Piedad kyle #[id number] - MGSCRBIL #BILATERAL DIGITAL SCREENING MAMMOGRAM WITH CAD: 05/20/2018 CLINICAL: Routine screening. Comparison is made to exam dated: 08/02/2015 mammogram - [facility]. Current st udy contains 6 films. The [...] Abisai Estevez Jr., D.O. cw/:06/04/2018 11 :25:13 Housekeeping Supervisor Hotel: Sharmaine VÁSQUEZ(R)(M), [facility] letter sent: Compared to Prior B9 Mammogram BI-RADS: 2 Jerod ign Dictated By: ABISAI ESTEVEZ DO 1125 Transcribed By: MARVIN on 06/04/18 1125 COPY TO: SHARMAINE [place] MD () US [id number] 16:47:00 [place] [address] Patient Name: KIRK JARAMILLO MR #: [id number] : 1975 Age/Sex: 43/F Req #: [id number] Adm Physician: Ordered by: SHARMAINE AYALA MD Report #: [id number] Location: US Room/Bed: Procedure: [id number] US /US THYROID Exam Date: 05/18/18 Exam [...] MD (NS) SP LUMBAR AP LATERAL 2-3VWS [place] [address] Patient Name: KIRK JARAMILLO MR #: [id number] : 1975 Age/Sex: 42/F Req #: [id number] Adm Physician: Ordered by: SHARMAINE AYALA MD Report #: [id number] Location: US Room/Bed: Procedure: [id number] DX/SP LUMBAR AP LATERAL 2-3 VWS Exam [...] 181 COPY TO: SHARMAINE AYALA MD (NS) [place] [address] Patient Name: KIRK JARAMILLO MR #: [id number] : 1975 Age/Sex: 42/F Req #: [id number] Adm Physician: Ordered by: SHARMAINE AYALA MD Report #: [id number] Location: Room/Bed: Procedure: [id number] US/US LIVER Exam Date: 04/17 Exam Time: 1509 REPORT STATUS: Signed FL OCEDURE: US LIVER COMPARISON: None. INDICATIONS: Elevated [...]
--- OUTSIDE RECORDS SUMMARY | 2019-08-18 13:01 | XMS REPORT | Continuity of Care Document ---
Author Author [employer] Address Unknown Phone Unavailable Care Team Providers Care Histologic Aide Name Role Phone [employer] Unavailable Un available Problems Problem Status Onset Date Classification Date Reported Comments Source Vaccines Prophylactic Need Against Influenza Active 06/30/2013 [facility] Herniated Cervical Disc Active 06/30/2013 [facility] Hypertension Active 06/30/2013 [facility] Asthma Active 06/30/2013 [facility] Acute Upper Respiratory Infection Active 06/30/2013 [facility] Medications Medication Details Route Status Patient Instructions Ordering Provider Order Date Source PredniSONE 20 MG Oral Tablet ; Start Date: 06/28/2013; End Date: (Active) Active 06/28/2013 [facility] Nasonex 50 MCG/ACT Nasal Suspension ; Start Date: 06/28/2013; End Date: (Active) Active 06/28/2013 [facility] Azithromycin 250 MG Oral Tablet ; Start Date: 06/28/2013; End Date: (Active) Active 06/28/2013 [facility] Cefdinir 300 MG Oral Capsule ; Start Date: 03/24/2013; End Date: (Active) Active 03/24/2013 [facility] Albuterol Sulfate 1.25 MG/3ML Inhalation Nebulization Solution ; Start Date: 03/24/2013; End Date: 04/1899 (Active) Active 03/24/2013 [facility] Gabapentin 100 MG Oral Capsule ; Start Date: 02/04/2013 (Active) Active 02/04/2013 [facility] Ventolin HFA 108 (90 Base) MCG/ACT Inhal ation Aerosol Solution ; Start Date: 02/04/2013; End Date: 04/1899 (Active) Active 02/04/2013 [facility] Lisinopril-Hydrochlorothiazide 10-12.5 MG Oral Tablet ; Start Date: ; End Date: (Active) Inactive [facility] Advair Diskus 500-50 MCG/DOSE Inhalation Aerosol Powder Breath Activated ; Start Date: ; End Date: 04/1899 (Active) Inactive [facility] Montelukast Sodium 10 MG Oral Tablet ; Start Date: ; End Date: (Active) Inactive [facility] No Active Medications No Activ e Medications Active [facility] Allergies, Adverse Reactions, Alerts Substance Category Reaction Severity Reaction type Status Date Reported Comments Source Dilcarito CAPS drug allergy drug allergy Active [facility] Immunizations Immunization Date Given Site Status Last Updated Comments Source Influenza 02/04/2013 completed [facility] Influenza completed [facility] Results No Data Provided for This [...] ADM Date DC Date Status Source AUDIT [id number] 02/04/2013 02/04/2013 [facility] AUDIT [id number] 03/24/2013 03/24/2013 [facility] John CHOI cornelio: SHARMAINE AYALA, Status: Pen, Time: 10:00 AM [id number] 05/09/2013 03/24/2013 [facility] AUDIT [id number] 06/30/2013 06/30/2013 [facility] Procedures No Data Provided for This Section Assessment and Plan No Data Provided for This Section Plan of Care Plan of Care Date Source Asthma action plan, adult 02/04/2013 [facility]hma action plan, adult 03/24/2013 Routine 06/30/2013 [facility] Asthma action plan, adult 02/04/2013 Rou tineAsthma action plan, adult 03/24/2013 Routine 03/24/2013 [facility] Social History Social History Date Source Marital History - Currently (Active) Never A Smoker (Active) Being A Social Drinker (Active) No History of Drug Use (Denied) Occupation: Comments: [employer] (Active) 06/30/2013 [facility] Family History Value Date S ource Maternal history of Diabetes Mellitus (V 18.0); (Active) 06/30/2013 [facility] Maternal history of Diabetes Mellitus (V 18.0); (Active) 03/24/2013 [facility] Maternal history of Diabetes Mellitus (V 18.0); (Active) 02/04/2013 [facility] Advance Directives Order Name Results Value Date Source Advance Directives Advance Dir ectives No Advance Directives available. 06/30/2013 [facility] Advance Directives Advance Dir ectives No Advance Directives available. 03/24/2013 [facility] Advance Directives Advance Dir ectives No Advance Directives available. 02/04/2013 [facility] Functional Status No Data Provided for This Section
--- NOTE | 2019-08-18 13:15 | Operative Report ---
DATE OF PROCEDURE: 08/18/2019 SURGEON: Kwaku Yeh MD PREOPERATIVE DIAGNOSIS: Left L5-S1 disk herniation with radiculopathy. POSTOPERATIVE DIAGNOSIS: Left L5-S1 disk herniation with radiculopathy. PROCEDURE: Left L5-S1 laminotomy, medial facetectomy, and microsurgical diskectomy. ANESTHESIA: General. INDICATIONS: The patient is a 44-year-old woman who presents with an intractable left S1 radiculopathy due to L5-S1 disk herniation. She was taken to surgery for microsurgical diskectomy. PROCEDURE IN DETAIL: After induction of general anesthesia, the patient was placed on the operating table in prone position over a Eugenio frame. The lumbar region was prepped and draped in sterile fashion. A preoperative x-ray was obtained. A small midline incision was created over the L5-1 disk space. The lumbar fascia was opened to the left of midline and a subperiosteal dissection was carried out to expose the left-sided L5 and S1 lamina and the medial aspect of the L5-S1 facet joint. A second x-ray confirmed correct localization. The operating microscope was brought in. A high-speed drill equipped with sanjeev bur was used to drill the inferior aspect of lamina of L5 and the superior rim of the lamina of S1 and the medial rim of the L5-S1 facet joint. The ligamentum flavum was resected and the dural sac and the S1 nerve root were exposed. The nerve root was carefully mobilized medially and the underlying disk herniation came into view. The posterior longitudinal ligament was incised and the extruded disk material was retrieved and removed from under the S1 nerve roots. The posterior annulus of the disk was enlarged and the disk space was entered. The disk space itself was found to be quite degenerated and nearly closed. Some disk material was retrieved and removed from the disk space. More medially, a chronic osteophyte could be palpated which did not compress the S1 nerve root. Good decompression of the S1 nerve root had been achieved. The wound was irrigated with bacitracin solution. Meticulous hemostasis was secured. A small piece of Gelfoam was left in the lateral recess to maintain hemostasis. The wound was then closed in multiple layers with 0 and 2-0 Vicryl sutures. The skin was closed with 3-0 Monocryl sutures. Steri-Strips and dressing were applied. The patient was awakened, extubated, and taken to postanesthesia care unit in stable neurological condition. No intraoperative complications were encountered. ESTIMATED BLOOD LOSS: 10 mL. Kwaku Yeh MD PP/GREG /[id number]
[2019-08-18] MEDS ORDERED: HYDROMORPHONE 1MG/1ML INJ ONE (13:30)
[2019-08-18] MEDS ORDERED: OXYCODONE/ACETAMINOPHEN 5-325 1 EACH TABLET ONE (15:47)
[2019-08-18] MEDS ORDERED: CARISOPRODOL 350 MG TAB ONE (15:48)
--- NOTE | 2019-08-18 16:11 | NUR ---
PT ARRIVED TO ROOM 108 VIA STRETCHER. PT AWAKE, ALERT, ABLE TO TRANSFER WITH MINIMAL ASSIST. PT REPORTS NO SX AT THIS TIME. WILL CONTINUE TO MONITOR.
--- NOTE | 2019-08-18 16:30 | NUR ---
Received patient from PACU at 1611 via stretcher. AAOX4 to time, person, place, situation. Respirations even and unlabored. Dressing to Lower back clean, dry, and intact. Oriented patient to room. Instructed to use call light for assistance. Voiced understanding. Side rails upx2, call light within reach. Report given to Deanne MISHRA of patient's status.
[2019-08-18 16:54] VITALS: BP 125/83
[2019-08-18 17:00] VITALS: BP 125/83
[2019-08-18] MEDS ORDERED: SINGULAIR10 MG PO (17:01)
[2019-08-18] MEDS ORDERED: PROPOFOL IV EMULSION 10 MG/ML 20 ML VIAL ONE (18:17)
[2019-08-18] MEDS ORDERED: NEOSTIGMINE 1 MG/ML 10ML VIAL ONE (18:17)
[2019-08-18] MEDS ORDERED: SEVOFLURANE INHAL SOLN 250 ML PEN BTL ONE (18:17)
[2019-08-18] MEDS ORDERED: ONDANSETRON HCL INJ 2MG/ML 2ML 2 MG/ML VIAL ONE (18:17)
[2019-08-18] MEDS ORDERED: DEXAMETHASONE SOD PHOS INJ 4 MG/ML VIAL ONE (18:17)
[2019-08-18] MEDS ORDERED: GLYCOPYRROLATE INJ 0.2 MG/ML VIAL ONE (18:17)
[2019-08-18] MEDS ORDERED: ROCURONIUM BROMIDE 10 MG/ML 5ML VIAL IV ONE (18:17)
[2019-08-18] MEDS ORDERED: LIDOCAINE HCL 2% LOCAL INJ 5 ML SDV VIAL INJ ONE (18:17)
[2019-08-18] MEDS: LACTATED RINGER'S 1,000 ML IV SCH ×2 (19:01→20:05)
[2019-08-18] MEDS: CEFAZOLIN SOD 1 GM/NS 50ML 50 ML IV SCH ×2 (19:01→21:36)
--- NOTE | 2019-08-18 19:20 | NUR ---
RECEIVED THE PATIENT IN REPORT.AAOX3.BED LOCKED AND IN LOWEST POSITION.PHONE AND CALL LIGHT WITHIN REACH.INSTRUCTED TO CALL FOR ASSISTANCE NEEDED.DRESSING TO BACK IS DRY.PAIN VOICED 5/10.
[2019-08-18] MEDS ORDERED: FENTANYL CITRATE/PF 100MCG/2 ML INJ ONE (19:43)
[2019-08-18] MEDS ORDERED: MIDAZOLAM HCL 2 MG/2 ML VIAL ONE (19:43)
[2019-08-18 20:00] VITALS: BP 121/77
[2019-08-18] MEDS: OXYCODONE/ACETAMINOPHEN 5-325 1 EACH TABLET PO PRN (20:17)
[2019-08-18] MEDS: CARISOPRODOL 350 MG TAB PO PRN (20:17)
[2019-08-18 21:00] VITALS: BP 121/77
[2019-08-18] MEDS ORDERED: NORETHINDRONE 0.35 MG PO SCH (21:00)
[2019-08-18] MEDS ORDERED: ZOLPIDEM TARTRATE 5 MG TAB PO PRN (21:00)
[2019-08-19] VITALS: BP 126/88
--- NOTE | 2019-08-19 01:33 | NUR ---
TOLERATES DIET.STABLE CONDITION.RESTING IN THE BED.
[2019-08-19 04:00] VITALS: BP 119/83
[2019-08-19] MEDS: LACTATED RINGER'S 1,000 ML IV SCH (04:25)
[2019-08-19] MEDS: CEFAZOLIN SOD 1 GM/NS 50ML 50 ML IV SCH (05:34)
[2019-08-19] MEDS: OXYCODONE/ACETAMINOPHEN 5-325 1 EACH TABLET PO PRN (05:46)
[2019-08-19] MEDS: CARISOPRODOL 350 MG TAB PO PRN (05:46)
[2019-08-19] MEDS ORDERED: TIOTROPIUM 18 MCG INH POWDER INH SCH (06:00)
--- NOTE | 2019-08-19 07:00 | NUR ---
BED SIDE SHIFT REPORT GIVEN TO ONCOMING RN.STABLE CONDITION.
[2019-08-19 08:06] VITALS: BP 110/69
[2019-08-19] MEDS ORDERED: [UNRECOGNIZED DRUG - OTHER] PO SCH (09:00)
[2019-08-19] MEDS ORDERED: LISINOPRIL 2.5 MG TAB PO SCH (09:00)
[2019-08-19 09:34] VITALS: BP 110/69
--- NOTE | 2019-08-19 09:37 | NUR ---
PATIENT DISCHARGED. IV ACCESS REMOVED, BLEEDING CONTROLLED & DRESSING APPLIED. DISCHARGE INSTRUCTIONS AND PRESCRIPTION GIVEN TO PATIENT. COPIES PLACED IN CHART. PATIENT AND DENIED ANY QUESTIONS REGARDING INSTRUCTIONS. PATIENT AMBULATED OFF UNIT TO 'S VEHICLE IN STABLE CONDITION.
== END 2019-08-19 09:36 | disposition home or self-care (01) ==
LOC: OR 07:30 → PACU V 11:41 → MED/SURG 16:12
PROVIDERS: ADMIT Neurological Surgery; ATTEND Neurological Surgery
DX: M51.17 Intervertebral disc disorders with radiculopathy, lumbosacral region (principal); Z01.810 Encounter for preprocedural cardiovascular examination; Z01.812 Encounter for preprocedural laboratory examination; Z01.818 Encounter for other preprocedural examination; I10 Essential (primary) hypertension; E11.9 Type 2 diabetes mellitus without complications; J45.909 Unspecified asthma, uncomplicated
CPT/HCPCS: 36415 ×3; 63047; 71046; 72020; 80048; 81025; 82948 ×2; 85025; 85610; 85730; 86850; 86900; 87635; 88304; 93005; G0378 ×2; J0131; J0690 ×2; J1100; J1170 ×2; J2001; J2175; J2250; J2405; J2704; J2710; J3010

== ENCOUNTER 2019-09-02 11:00 | Outpatient (RCR) | payer BC ==
[~2019-09-02 11:00] MED LIST changes: -ACETAMINOPHEN 1000 MG/100 ML 100 ML IV ONE; -IBUPROFEN 800MG/ 200ML 200 ML IV ONE; -LIDOCAINE HCL (LTA) 4 ML SOLN ONE
== END 2019-09-04 ==
LOC: PT 11:00
PROVIDERS: ATTEND Neurological Surgery
DX: M51.17 Intervertebral disc disorders with radiculopathy, lumbosacral region (principal); M62.81 Muscle weakness (generalized); R26.2 Difficulty in walking, not elsewhere classified; M53.87 Other specified dorsopathies, lumbosacral region

== ENCOUNTER 2019-09-16 10:00 | Outpatient (RCR) | payer BC | END 2019-10-04 | LOC: PT 10:00 | PROVIDERS: ATTEND Neurological Surgery | DX: M51.17 Intervertebral disc disorders with radiculopathy, lumbosacral region (principal); M53.87 Other specified dorsopathies, lumbosacral region; M62.81 Muscle weakness (generalized); R26.2 Difficulty in walking, not elsewhere classified ==

== ENCOUNTER → 2020-03-09 | Outpatient (CLI) | payer BC ==
[~2020-03-09] MED LIST changes: +FENTANYL CITRATE/PF 100MCG/2 ML INJ ONE; +GADOBENATE DIMEGLUMINE 1 ML IV ONE; +LACTATED RINGER'S 1,000 ML ONE; +LIDOCAINE HCL 2% LOCAL INJ 5 ML SDV VIAL INJ ONE; +MIDAZOLAM HCL 2 MG/2 ML VIAL ONE; +PROPOFOL IV EMULSION 10 MG/ML 20 ML VIAL ONE
[2020-03-09 11:21] LABS: BLOOD UREA NITROGEN 13 mg/dL (7-26); BUN/CREATININE RATIO 20 (6-25); CREATININE, SERUM 0.64 mg/dL (0.57-1.11); EST GLOMERULAR FILTRATION RATE > 60 ML/MIN (60-)
--- NOTE | 2020-03-09 14:42 | Diagnostic Imaging Report ---
Examination: MRI SPINE LUMBAR WOW History: Left leg numbness. Comparison studies: Lumbar spine MRI performed June 15, 2019 Technique: Pre-contrast: Sagittal and axial T2 , sagittal T1 and IR, axial spin density oblique. Post contrast: Axial and sagittal fat saturated sequences. Intravenous contrast: 14 mL of MultiHance. Findings: Number of lumbar vertebral bodies:Five. Alignment: Normal lordosis. No scoliosis. Soft tissues: No T2 hyperintense inflammatory changes. Paraspinal muscles: No signal abnormalities. Well-preserved. No atrophic changes Lower thoracic cord: Normal in signal and morphology. The tip of the conus is at bottom of T12 . Cauda equina: No masses. No arachnoiditis. Vertebrae: No compression fractures, infection or neoplasm. 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 Degenerative changes: L1-L2 through L4-L5: No abnormalities L5-S1: Interval surgical resection of a central and left central disc protrusion with enhancing granulation tissue in the left subarticular recess that approximates the descending left S1 nerve root which also enhances. No recurrent disc. No canal or foraminal stenosis. IMPRESSION: 1. Interval surgical resection of central and left central disc protrusion with enhancing granulation tissue in the left subarticular recess that approximates the descending left S1 nerve root, which also enhances. 2. No recurrent disc or canal or foraminal stenosis at L5-S1. Signed by: Dr. Yelitza Baltazar M.D. on 03/09/2020 2:38 PM
== END ==
LOC: MRI 10:06
PROVIDERS: ATTEND Neurological Surgery
DX: M51.17 Intervertebral disc disorders with radiculopathy, lumbosacral region (principal)
CPT/HCPCS: 36415; 72158; 81025; 82565; 82948; 84520; A9577; J2001; J2250; J2704; J3010; J7121; U0002

== ENCOUNTER → 2020-04-04 | Outpatient (CLI) | payer OTHER ==
[~2020-04-04] MED LIST changes: +COVID-19 VACC, MRNA(MODERNA)/PF 100 MCG/0.5 ML VIAL IM ONE; -FENTANYL CITRATE/PF 100MCG/2 ML INJ ONE; -GADOBENATE DIMEGLUMINE 1 ML IV ONE; -LACTATED RINGER'S 1,000 ML ONE; -LIDOCAINE HCL 2% LOCAL INJ 5 ML SDV VIAL INJ ONE; -MIDAZOLAM HCL 2 MG/2 ML VIAL ONE; -PROPOFOL IV EMULSION 10 MG/ML 20 ML VIAL ONE
== END ==
LOC: VACCPMC 14:14
DX: Z23 Encounter for immunization (principal); Z20.828 Contact with and (suspected) exposure to other viral communicable diseases

== ENCOUNTER 2020-04-15 11:19 | Emergency (ER) | payer BC, OTHER ==
[~2020-04-15] VITALS: Ht 162.6 cm; Wt 71.8 kg
[~2020-04-15 11:19] MED LIST changes: -COVID-19 VACC, MRNA(MODERNA)/PF 100 MCG/0.5 ML VIAL IM ONE
[2020-04-15] MEDS ORDERED: [UNRECOGNIZED DRUG - OTHER] INJ (11:51)
[2020-04-15] MEDS ORDERED: BUDESONIDE ER9 MG (11:51)
[2020-04-15] MEDS ORDERED: METFORMIN HCL500 MG PO ×2 (11:51→14:24)
[2020-04-15] MEDS ORDERED: ATORVASTATIN CA20 MG PO (11:51)
[2020-04-15] MEDS ORDERED: ADVAIR 250-501 EACH (11:51)
[2020-04-15] MEDS ORDERED: KETOROLAC TROMETHAMINE 30 MG/ML VIAL IV STA (12:07)
[2020-04-15] MEDS ORDERED: SODIUM CHLORIDE 0.9% 1000ML 1,000 ML IV SCH (12:15)
[2020-04-15] MEDS ORDERED: ALBUTEROL/IPRATROPIUM 3 ML NEB NEB ONE (12:15)
[2020-04-15] MEDS ORDERED: METHYLPREDNISOLONE SOD SUCC 125 MG/2ML VIAL IV ONE (12:15)
[2020-04-15] MEDS ORDERED: METHYLPREDNISOLONE SOD SUCC 125 MG/2ML VIAL ONE (12:22)
[2020-04-15] MEDS ORDERED: PREDNISONE20 MG PO (14:22)
[2020-04-15 14:38] VITALS: BP 11/66
== END 2020-04-15 14:35 | disposition home or self-care (01) ==
LOC: FSED 11:34
DX: J45.901 Unspecified asthma with (acute) exacerbation (principal); R05 Cough; R07.89 Other chest pain; R94.31 Abnormal electrocardiogram [ECG] [EKG]; E11.65 Type 2 diabetes mellitus with hyperglycemia; I10 Essential (primary) hypertension; G40.909 Epilepsy, unspecified, not intractable, without status epilepticus
CPT/HCPCS: 36415; 71046; 80053; 81003; 81025; 82553; 82948; 83880; 84484; 85025; 93005; 96374; 96375; 99284; J1885; J2930; J7030

== ENCOUNTER → 2020-05-11 | Outpatient (CLI) | payer OTHER ==
[~2020-05-11] MED LIST changes: +ADVAIR 250-501 EACH; +ATORVASTATIN CA20 MG PO; +BUDESONIDE ER9 MG; +COVID-19 VACC, MRNA(MODERNA)/PF 100 MCG/0.5 ML VIAL IM ONE; +METFORMIN HCL500 MG PO; +PREDNISONE20 MG PO; +[UNRECOGNIZED DRUG - OTHER] INJ
== END | DRG 951 ==
LOC: VACCPMC 09:44
DX: Z23 Encounter for immunization (principal); Z20.822 Contact with and (suspected) exposure to COVID-19
CPT/HCPCS: 0012A; 91301

== ENCOUNTER 2022-08-19 08:27 | Emergency (ER) | payer BC, OTHER ==
[~2022-08-19] VITALS: Ht 162.6 cm; Wt 71.7 kg
[~2022-08-19 08:27] MED LIST changes: -COVID-19 VACC, MRNA(MODERNA)/PF 100 MCG/0.5 ML VIAL IM ONE
[2022-08-19] MEDS ORDERED: SODIUM CHLORIDE 0.9% 1000ML 1,000 ML IV STA (09:03)
[2022-08-19] MEDS ORDERED: METOCLOPRAMIDE HCL 10 MG/2ML VIAL IV ONE (09:15)
[2022-08-19] MEDS ORDERED: DIPHENHYDRAMINE HCL INJ 50 MG/ML VIAL IV ONE (09:15)
[2022-08-19 09:17] LABS: BASOPHILS % 0.3 % (0.0-1.0); EOSINOPHILS # (AUTO) 6.5 (0.0-0.4); EOSINOPHILS % 47.5 % (0.0-6.0); HEMOGLOBIN 13.1 g/dL (12.0-16.0); LYMPHOCYTES # (AUTO) 3.3 (1.0-3.2); MEAN CORPUSCULAR HEMOGLOBIN 28.2 pg (28-32); MEAN CORPUSCULAR HGB CONC 34.5 g/dL (31-35); MEAN CORPUSCULAR VOLUME 81.7 fL (81-99); MONOCYTES # (AUTO) 0.4 (0.2-0.8); MONOCYTES % 2.7 % (4.4-11.3); NEUTROPHILS # (AUTO) 3.4 (2.1-6.9); NEUTROPHILS % 25.2 % (38.7-80.0); PLATELET COUNT 240 x10e3/uL (140-360); RED BLOOD COUNT 4.65 x10e6/uL (3.6-5.1); RED CELL DISTRIBUTION WIDTH 13.5 % (11.7-14.4)
[2022-08-19 09:38] LABS: ALBUMIN/GLOBULIN RATIO 1.2 (0.8-2.0); ANION GAP 13.5 mmol/L (8-16); CALCIUM 8.7 mg/dL (8.4-10.2); CREATININE, SERUM 0.67 mg/dL (0.57-1.11); MAGNESIUM 1.6 MG/DL (1.3-2.1); POTASSIUM 3.5 mmol/L (3.5-5.1)
[2022-08-19] MEDS ORDERED: IOPAMIDOL 370 MG/ML 100 ML INFUS..BTL INJ ONE (10:01)
[2022-08-19] MEDS ORDERED: SODIUM CHLORIDE 0.9% 100 ML ONE (10:01)
[2022-08-19 10:42] LABS: EOSINOPHILS % (MANUAL) 53 % (0-7); LYMPHOCYTES % (MANUAL) 17 % (19-48); MONOCYTES % (MANUAL) 2 % (3.4-9.0); NEUTROPHILS % (MANUAL) 23 % (40-74); PLATELET ESTIMATE ADEQUATE; PLATELET MORPHOLOGY COMMENT NORMAL; RBC MORPHOLOGY COMMENT NORMAL
[2022-08-19 10:52] LABS: CLARITY,URINE CLOUDY (CLEAR); COLOR,URINE YELLOW (YELLOW); KETONES,URINE NEGATIVE (NEGATIVE); LEUKOCYTE ESTERASE ,URINE NEGATIVE (NEGATIVE); NITRITE,URINE NEGATIVE (NEGATIVE); PROTEIN,URINE DIPSTICK TRACE (NEGATIVE); URINE UROBILINOGEN 0.2 mg/dL (0.2 - 1)
[2022-08-19 11:02] LABS: BACTERIA,URINE RARE /HPF; EPITHELIAL CELLS,URINE FEW /LPF; RBC,URINE 0-5 /HPF (0-5)
[2022-08-19] MEDS ORDERED: ONDANSETRON HCL INJ 2MG/ML 2ML 2 MG/ML VIAL IV STA (11:29)
[2022-08-19] MEDS ORDERED: METRONIDAZOLE500 MG PO (11:30)
[2022-08-19] MEDS ORDERED: CEFDINIR300 MG PO (11:30)
[2022-08-19] MEDS ORDERED: DICYCLOMINE HCL20 MG PO (11:30)
[2022-08-19 12:07] VITALS: BP 115/68; PULSE 87; RESP 17; TEMP 98.2; O2SAT 100
== END 2022-08-19 12:03 | disposition home or self-care (01) ==
LOC: ER 08:34
DX: K31.84 Gastroparesis (principal); N39.0 Urinary tract infection, site not specified; E11.65 Type 2 diabetes mellitus with hyperglycemia; I10 Essential (primary) hypertension; J45.909 Unspecified asthma, uncomplicated; F41.9 Anxiety disorder, unspecified
CPT/HCPCS: 36415; 74177; 80053; 81001; 82948; 83690; 83735; 84484; 85025; 87086; 99284; C9113; J1200; J2405; J2765; J7030; J7050; Q9967

== ENCOUNTER → 2022-09-05 | Outpatient (CLI) | payer BC ==
[~2022-09-05] MED LIST changes: +CEFDINIR300 MG PO; +DICYCLOMINE HCL20 MG PO; +METRONIDAZOLE500 MG PO
== END ==
LOC: US 08:33
PROVIDERS: ATTEND Nurse Practitioner Family
DX: K31.84 Gastroparesis (principal); R11.2 Nausea with vomiting, unspecified; R19.7 Diarrhea, unspecified
CPT/HCPCS: 76700

== ENCOUNTER 2024-05-24 08:26 | Emergency (ER) | payer BC ==
[~2024-05-24] VITALS: Ht 162.6 cm; Wt 62.8 kg
[~2024-05-24 08:26] MED LIST changes: +COMBIVENT RESPIM4 GM IH; +PROVENTIL HFA6.7 GM INH
[2024-05-24] MEDS ORDERED: ESTRADIOL1 MG PO (09:10)
[2024-05-24] MEDS ORDERED: HYDROXYZIN10 MG/5 ML PO (09:10)
[2024-05-24] MEDS ORDERED: ESCITALOPRAM OX20 MG (09:10)
[2024-05-24] MEDS ORDERED: MOUNJARO10 MG/0.5 (09:10)
[2024-05-24] MEDS ORDERED: FLOMAX0.4 MG PO (09:10)
[2024-05-24] MEDS ORDERED: ONDANSETRON ODT4 MG PO (09:24)
[2024-05-24] MEDS ORDERED: PYRIDIUM100 MG PO (12:05)
[2024-05-24] MEDS ORDERED: CEFDINIR300 MG PO (12:05)
[2024-05-24] MEDS ORDERED: KETOROLAC TROMETHAMINE 30 MG/ML VIAL ONE (12:14)
[2024-05-24] MEDS: KETOROLAC TROMETHAMINE 30 MG/ML VIAL IV STA (12:24)
[2024-05-24 12:30] VITALS: PULSE 72; RESP 16; TEMP 97.5; O2SAT 99
== END 2024-05-24 12:30 | disposition home or self-care (01) ==
LOC: FSED 08:48
DX: R30.0 Dysuria (principal); N39.0 Urinary tract infection, site not specified; R10.32 Left lower quadrant pain; I10 Essential (primary) hypertension; E11.9 Type 2 diabetes mellitus without complications; J45.909 Unspecified asthma, uncomplicated; F41.9 Anxiety disorder, unspecified
CPT/HCPCS: 74176; 80053; 81003; 85025; 87086; 96374; 99284; J0696; J1885